=== PATIENT | male | born 1960 | race Caucasian/White ===

== ENCOUNTER 2023-08-03 11:56 | Inpatient (IN) | payer OTHER, SELFPAY ==
[2023-08-03] VITALS (8 sets, daily range): BP systolic 151–199; BP diastolic 89–112; BMI 32.4
--- NOTE | 2023-08-03 09:17 | ED.CVA ---
History of Present Illness
General
Chief Complaint: CVA/TIA Symptoms
Source: patient and other (Friend)
Exam Limitations: none
Time Seen by Provider: 08/03/23 09:07
Onset of Stroke Symptoms
Onset of symptoms known: No
Time pt last seen normal is known: No
Travel History
Have you had any contact with someone who has COVID-19?: No
Do you have any symptoms of coronavirus? Fever > 100 degrees, chills, cough, shortness of breath, sore throat, loss of taste or smell, muscle aches, or headache?: No
History of Present Illness
History of Present Illness:
62-year-old male presents with some slurred speech and disequilibrium like symptoms. Per his friend who brought him in and works with him, they have noticed over the last few weeks he has parking cars mildly erratically. Some difficulty following
commands. Patient states his complaint is his blood pressure.
Past History
Past History
ED Past Medical History: None
Review of Systems
Review of Systems
All Other Systems: Not applicable
Respiratory: Reports no symptoms
Cardiac: Reports no symptoms
Phy Exam
Physical Exam
Physical Exam:
GENERAL: Alert and oriented. Poor eye contact.
EYE: Orbits normal.
NECK: Supple, no significant adenopathy.
ENT: Pharynx without erythema
CARDIAC: Regular rate and rhythm without any obvious murmurs.
LUNGS: Clear breath sounds,normal
ABDOMEN: Soft, without focal tenderness or distention
NEUROLOGICAL: Alert and oriented , moderate slurred speech. No expressive aphasia. No clear-cut facial droop drift or lower extremity weakness however significant bilateral poor [id number] and [id number]. Light touch intact
SKIN: Warm and dry, no rash or lesion, no discoloration, skin intact.
MUSCULOSKELETAL: No edema,no deformity.Good color
PSYCH: Normal and appropriate interaction.
Scores
NIH Stroke Score
Level of Consciousness: 0 - Alert
LOC Questions: 0-Answers both correctly
LOC Commands: 0-Performs both correctly
Best Horizontal Gaze: 0-Normal
Visual [place]: 0=Normal, no visual loss
Facial Palsy: 0=Normal, symmetrical
Motor - Right Arm: 0=No drift 10 seconds
Motor - Left Arm: 0=No drift 10 seconds
Motor - Right Le-No drift 5 seconds
Motor - Left Le-No drift 5 seconds
Limb Ataxia: 2-Present in two limbs
Sensation: 0-Normal
Best Language: 0-No aphasia
Dysarthria: 2-Severe slurring
Extinction and Inattention: 0-No abnormality
Total Score:: 4
Course
Orders/Labs/Results
Orders:
Orders
08/03/23 09:07
ECG [Electrocardiogram (*1)] Urgent
Reason for Study: TIA/Stroke
08/03/23 09:08
EKG- Treatment ONCE
08/03/23 09:16
CT Head W/o Iv Contrast Urgent
Comment:
Reason For Exam: Slurred speech. Balance issues
Cardiac Monitoring- Treatment ONCE
IV Insert/Care/Rem.- Treatment PRN
Pulse Ox/cont/shift [RESP] Stat
Quantity: 1
08/03/23 09:30
Complete Blood Count/With Diff Urgent
Comprehensive Metabolic Panel Urgent
PTT Urgent
Prothrombin Time Urgent
08/03/23 10:45
Aspirin Chewable [Low Strength Aspirin] 324 mg PO NOW STA
08/03/23 11:33
Admit/Transfer Patient As Directed
Co-Sign Provider:
Level of Care: Inpatient admission
Assign to:: Telemetry
Physician / Group: russell
Diagnosis: Speech difficulty concerning for stroke
Reason for Telemetry: CVA/TIA
Date to Stop Telemetry: 08/06/23
Time to Stop Telemetry: 11:00
Reason for Hospitalization: see progress note
Expected length of stay greater than two midnights?: Yes
ELOS- Estimated Length of Stay in days: 3
I certify the patient meets the requirements for IP care: Yes
08/03/23 11:35
Code Status As Directed
Resuscitation Status: Full Code
08/06/23 11:00
DC Protocol for Telemetry ONCE
Abnormal Lab Results
08/03/23 08/03/23
09:20 09:30
Sodium 134 L mmol/L
(135-145)
BUN 23 H mg/dl
(9-20)
Glucose 313 H mg/dl
(70-99)
POC Glucose 323 H mg/dl
(70-99)
08/03/23 09:30
08/03/23 09:30
Vital Signs
Initial and Last Documented VS:
Initial Vital Signs
Temp Pulse Resp BP Pulse Ox
99.9 F 97 16 199/110 95
08/03/23 09:02 08/03/23 09:02 08/03/23 09:02 08/03/23 09:02 08/03/23 09:02
Last Documented Vital Signs
Temp Pulse Resp BP Pulse Ox
99.9 F 94 16 161/89 95
08/03/23 09:02 08/03/23 10:03 08/03/23 10:03 08/03/23 10:03 08/03/23 10:03
MDM/Problems Addressed
Differential Diagnosis Includes:
Dysarthria/disequilibrium peripheral. Workup in progress clearly warrants admission. CVA versus tumor versus possible significant electrolyte abnormality
*Radiology
Radiology exam reviewed: radiology read reviewed (Old stroke by CT)
*Pulse Oximetry
Patient hypoxic: no
*EKG
Interpreted by ED Provider?: Yes
Interpretation: abnormal
Comparison EKG: no comparison EKG present
Heart Rate: 107
Rate: tachycardiac
Rhythm: sinus
[place]: normal axis
Interval: normal interval
QRS Pattern: normal QRS
Ischemia: no ischemia
*Baggage Handler Interpretation
Rate: tachycardiac
Interpretation: abnormal
Heart Rate: 110
Rhythm: sinus
*Critical Care Note
Total Time (30-74mins, 75-104mins- exclusive of procedures): 15
ED Attending Note
-
Portions of this chart may have been created with voice recognition software.� Occasional wrong word or��sound alike� substitutions may have occurred due to the inherent limitations of voice recognition software.
Discharge Plan
Departure
Patient Disposition: Admit
Date of Disposition: 08/03/23
Time of Disposition: 10:20
Presentation/result/management discussed w/ accepting MD/DO: Neurology
Discharge Problem:
CVA, Hyperglycemia
Referrals:
NONE,* [Family Provider] -
Interventions
Interventions:
*Risk Screen - Suicide Last Done: 08/03/23 09:45
*General Assessment Last Done: 08/03/23 09:45
*Neglect/Abuse Screening Last Done: 08/03/23 09:45
ED- Fall Risk Assessment Last Done: 08/03/23 09:45
*ED COVID-19 Vaccine History Last Done: 08/03/23 09:02
ED- Pulmonary Assessment Last Done: 08/03/23 09:45
ED- Neurological Assessment Last Done: 08/03/23 09:45
ED- Cardiac Assessment Last Done: 08/03/23 09:45
ED Swallowing Screen Last Done: 08/03/23 09:52
Discharge Date and Time
Print Language: TELUGU
[2023-08-03 09:21] LABS: Glucose - Point of Care 323 mg/dl (70-99)
[2023-08-03 09:37] LABS: % Basophils 0.4 % (0-2); % Eosinophils 1.7 % (0-6); % Immature Granulocytes 0.1 % (0-0.5); % Lymphocytes 22.9 % (20.5-51.1); % Neutrophils 68.9 % (42.2-75.2); Absolute Eosinophils 0.1 10^3/uL (0-0.7); Absolute Lymphocytes 1.6 10^3/uL (1.2-3.4); Absolute Monocytes 0.4 10^3/uL (0.1-0.6); Absolute Neutrophils 4.9 10^3/uL (1.4-6.5); Hematocrit 47.1 % (39.0-52.0); Hemoglobin 17.1 g/dL (13.0-18.0); Mean Corp Hgb Conc. 36.3 g/dL (33.0-37.0); Mean Corpuscular Hgb 30.5 pg (27.0-31.0); Mean Corpuscular Volume 84.1 fL (80.0-94.0); Mean Platelet Volume 8.6 fL (7.4-10.4); Nucleated Red Blood Cells % 0 % (-); Platelet Count 237 10^3/uL (130-400); Red Cell Dist. Width 12.7 % (11.5-14.5); White Blood Cell Count 7.1 10^3/uL (4.8-10.8)
[2023-08-03 09:53] LABS: INR 1.02; PT 13.2 Sec (11.4-14.6)
[2023-08-03 10:02] LABS: ALT (SGPT) 28 U/L (0-50); AST (SGOT) 20 U/L (17-59); Albumin 4.6 g/dl (3.5-5.0); Alkaline Phosphatase 96 U/L (38-126); Blood Urea Nitrogen 23 mg/dl (9-20); Calcium 9.8 mg/dl (8.4-10.2); Carbon Dioxide 22 mmol/L (22-30); Chloride 103 mmol/L (98-107); Glucose 313 mg/dl (70-99); Potassium 5.1 mmol/L (3.5-5.1); Sodium 134 mmol/L (135-145); Total Bilirubin 0.8 mg/dl (0.2-1.3); Total Protein 6.9 g/dl (6.3-8.2); eGFR > 60.00
[2023-08-03] MEDS: LOW STRENGTH ASPIRIN 324 MG PO (11:19)
--- NOTE | 2023-08-03 11:43 | HPS.HSE ---
Family Physician
-
Family Physician: * NONE
Chief Complaint
-
Speech impairment
History of Present Illness
Patient works at [employer] and is coworker was concerned about his speech impairment and balance issues so got him to the hospital.
Patient is 62-year-old gentleman who has never seen a doctor. No given diagnosis. No prior surgeries.
Patient states he started to have speech difficulty since Saturday maybe, denies anything beyond that. Daughter is at bedside. She states that her dad was with her at home on Saturday and she did notice that.
He states he is not able to form full sentences. Nothing coming out right.
Daughter also felt he may be his usual self when he took a car out while living his daughter's place.
Patient denies any balance issues. He denies any limb weakness. Denies any sensory symptoms in the extremities. No headache. No visual symptoms.
According to family in the last 2 weeks he was noted to have taken wrong turns while driving and missing turns. He once drove himself to wrong place. He denies any memory issues.
His blood sugars were 322 in the ER. Not diagnosis of diabetes mellitus before.
His blood pressure was also elevated on presentation.
CT head shows no evidence of acute bleeding or stroke but has evidence of small prior infarcts on the right side.
Medical History
Past Medical History
Past Medical History: Reports None
Past Surgical History: Reports None
Social History
Tobacco: Other (Tobacco chewing since 1980)
Alcohol: Occasional
Drug: None
Employment: Employed
Family History
Family History: Not pertinent
Allergies / Home Medications
Allergies reflects when Allergies were last updated in [employer].
Home Medications with original date entered in [employer]
Allergy/Medication List:
Allergies
Allergy/AdvReac Type Severity Reaction Status Date / Time
No Known Allergies Allergy Unverified 08/03/23 09:05
Review of Systems
-
A 12 point ROS was completed and negative except as noted: Yes
Physical Exam
Vital Signs
Vital Signs
Temp Pulse Resp BP Pulse Ox
99.9 F 94 16 161/89 95
08/03/23 09:02 08/03/23 10:03 08/03/23 10:03 08/03/23 10:03 08/03/23 10:03
Physical Exam
General: No Apparent Distress
HEENT: Moist mucous membranes
Respiratory: Clear
Cardiac: S1/S2 and Regular Rhythm; No Murmur
GI: Soft, Non Tender, Non Distended and No Hepatosplenomegaly
Neuro: AO x 3, No Motor Deficits and Slurred Speech; No Facial Droop or Tremors
Psych: Calm
Laboratory Results
-
08/03/23 09:30
08/03/23 09:30
Laboratory Results
PT 13.2 Sec (11.4-14.6) 08/03/23 09:30
INR 1.02 08/03/23 09:30
APTT 27.0 Sec (23.4-35.0) 08/03/23 09:30
Total Bilirubin 0.8 mg/dl (0.2-1.3) 08/03/23 09:30
AST 20 U/L (17-59) 08/03/23 09:30
ALT 28 U/L (0-50) 08/03/23 09:30
Alkaline Phosphatase 96 U/L (38-126) 08/03/23 09:30
Data Reviewed
-
CT Scan: Report Reviewed by me (ct head)
Lab Data: Labs Reviewed by me
Impression/Plan
-
Speech impairment for more than 24 hours. No obvious motor deficit currently. He does have balance issues noted by other people which he denies. He also had in the last 2 weeks issues with his cognition may be-was missing turns while driving.
Clinical suspicion is for CVA. CT head shows nothing acute but has old ischemic infarct in the right lentiform nucleus lacunar infarct and old right occipital lobe infarct. He has risk factors of tobacco chewing, new diagnosis of diabetes mellitus
and elevated blood pressure.
Admit to telemetry.
Start on aspirin and statins. Check a lipid profile.
Check an MRI of the brain and MRI of the head and neck.
Consult neurology.
ECHO.
New diabetes mellitus type 2-patient discussed to continue without major metabolic disturbance. Started on sliding scale insulin for now check hemoglobin A1c.Would consult diabetic nurse educator if he is here on Saturday.
Elevated BP -probably a hypertensive pt. will allow 24 to hours of permissive hypertension and start on scheduled medication as needed.
Tobacco use-advised to stop chewing tobacco as it is a significant risk factor for stroke and also cardiovascular disease.
Full code
[2023-08-03] MEDS: APRESOLINE 5 MG IV (15:15)
--- NOTE | 2023-08-03 15:27 | PTCARENOTE ---
Patient admitted from ER into room 403-01. BP elevated - Hydralazine given 5 mg IV as per parameters. Reviewed plan of care with patient and daughter and further testing ordered. Patient verbalizes understanding of teaching. Oriented to room, and
use of call wolf. Instructed to call if he has the need to get OOB due to having the pneumatic compression stockings on. Patient verbalizes understanding. Only neuro deficit is slightly slurred speech. Patient not aphasic. Patient takes no
medications at home. Passed swallowing screen so placed on diet ordered. Patient with good appetite. Resting comfortably in bed at this time and denies complaints.
[2023-08-03 17:12] LABS: Glucose - Point of Care 217 mg/dl (70-99)
[2023-08-03] MEDS: LIPITOR 40 MG PO (17:14)
[2023-08-03] MEDS: NOVOLOG FLEXPEN-LOW RESISTANCE 2 UNITS SC (17:16)
[2023-08-03 21:17] LABS: Glucose - Point of Care 223 mg/dl (70-99)
[2023-08-03] MEDS: NOVOLOG FLEXPEN 3 UNITS SC (22:33)
[2023-08-04] VITALS (8 sets, daily range): BP systolic 122–166; BP diastolic 73–106; PULSE 90
[2023-08-04 00:22] LABS: Glucose - Point of Care 161 mg/dl (70-99)
[2023-08-04 06:41] LABS: HDL Cholesterol 39 mg/dl; LDL Cholesterol, Calculated 210 mg/dl; Total Cholesterol 300 mg/dl (50-199); Triglyceride 258 mg/dl (10-149); Very Low Density Lipoprotein 51 mg/dl (0-30)
[2023-08-04 06:54] LABS: Glucose - Point of Care 239 mg/dl (70-99)
[2023-08-04] MEDS: NOVOLOG FLEXPEN-LOW RESISTANCE 2 UNITS SC ×3 (08:39→16:49)
[2023-08-04] MEDS: LOW STRENGTH ASPIRIN 81 MG PO (08:39)
[2023-08-04 08:59] LABS: Glycohemoglobin (HgbA1c) 9.8 % (4.0-5.6)
--- NOTE | 2023-08-04 09:30 | CON.NEURO4 ---
Consultation - Neurology 4
-
CONSULTING PHYSICIAN: mEa
REFERRING PHYSICIAN: ER
DICTATED BY: Ema
DATE/TIME OF REQUEST: 08/03/23
DATE/TIME OF CONSULTATION: 08/04/23
Reason for Consultation: stroke
History of Present Illness:
62 year-old male who had never seen a doctor before who noted speech difficulty starting on at least Saturday (two days ago). His daughter states that he was with her on Saturday and she did notice that. He works in [employer] and a coworker was
concerned about his speech abnormalities and some balance issues and got him to the hospital. Coworkers have also reported that he's been parking cars erractically for the past few weeks. Family has noted that in the last two weeks he was noted to
take wrong turns and miss turns while driving. No other clear focal neurological deficits. BG was 322 in the ED.
Past Medical History: Reports None
Past Surgical History: Reports None
Social History
Tobacco: chewing tobacco since 1980
Alcohol: Occasional
Drug: None
Employment: Employed
Family History: Not pertinent
Allergies
No Known Allergies Allergy (Unverified 08/03/23 09:05)
Home Medications
�Medication �Instructions �Recorded
hhyhigijkhxs-txhbdndx-osykhc 1 tab PO DAILY Supplement 08/03/23
tablet (Multivitamin 50 Plus
tablet)
Review of Symptoms:
Patient denies any fever, headache, chest pain, shortness of breath, GI or symptoms.
�Per the HPI.�All systems are reviewed negative except above.
Vital Signs
Temp Pulse Resp BP Pulse Ox
98.7 F 80 18 144/96 95
08/04/23 07:55 08/04/23 07:55 08/04/23 07:55 08/04/23 07:55 08/04/23 07:55
Lab Results
08/03/23 09:30
08/03/23 09:30
PT 13.2 Sec (11.4-14.6) 08/03/23 09:30
INR 1.02 08/03/23 09:30
APTT 27.0 Sec (23.4-35.0) 08/03/23 09:30
Sodium 134 mmol/L (135-145) L 08/03/23 09:30
Potassium 5.1 mmol/L (3.5-5.1) 08/03/23 09:30
BUN 23 mg/dl (9-20) H 08/03/23 09:30
Glucose 313 mg/dl (70-99) H 08/03/23 09:30
Calcium 9.8 mg/dl (8.4-10.2) 08/03/23 09:30
LDL Cholesterol, Calc 210 mg/dl 08/04/23 05:49
Physical Exam:
The patient is afebrile, heart sounds S1 and S2 are regular, and chest is clear to auscultation bilaterally.
NIH Stroke Scale:
I performed the NIH stroke scale on the patient on 08/04/23. The patient scored 0 points on the NIH stroke scale assessment.
Neurologic Examination:
The patient is awake, alert and oriented x 3. He is able to follow commands and answer questions appropriately. There is no aphasia or dysarthria. On cranial nerve assessment, pupils are 3 mm bilateral, round and reactive to light and
accommodation. Visual lowe are full. Extraocular movements are intact. Facial sensations are intact and bilaterally symmetrical, there is no facial asymmetry. Hearing is intact bilaterally to normal conversation volume. Tongue palate and uvula
are midline. Sternocleidomastoid strengths are full bilaterally. Motor strengths are 5/5 bilateral upper and lower extremities on medical research [place] scale. There is no drift or involuntary movement noted. Deep tendon reflexes are 2+ bilateral
upper and lower extremities and Babinski is absent bilaterally. Sensations of pain, touch, temperature and vibration are intact and bilaterally symmetrical. There was no extinction noted on double simultaneous stimulation. Coordination is intact by
finger to nose bilaterally.
Neuro Imaging:
HCT:
No acute intracranial abnormality noted.
Old right lentiform nucleus lacunar infarct.
Old right occipital lobe infarct.
Impression:
NA BRUCE is a 62 year old M who has presented to the hospital with aphasia and possible balance issues for more than 24 hours superimposed on cognitive impairment/difficulty with driving for at least 2 weeks. He is found to be diabetic with
elevated blood pressure and had never seen a doctor before.
Patient has the following risk factors for their symptoms: age, untreated vascular risk factors, use of chewing tobacco
IV Tenecteplase/IAT candidacy: out of the window
Recommendations:
-check MRI brain without contrast to evaluate for stroke
-MRA head/neck
-BP goal is normotension.
-started DAPT x 21 days, then ASA 81mg daily after.
-Hemoglobin A1C is 9.8. Goal is normoglycemia.
-Started atorvastatin 80 mgby mouth daily at bedtime. LDL is 210. Goal LDL after stroke is <70.
- Check an echocardiogram.
-PT/OT/ST evaluations
- DVT prophylaxis
-continue neurochecks
Discussed patient care with: patient, ER, hospitalist
--- NOTE | 2023-08-04 09:41 | PTOTSP ---
SPEECH THERAPY SWALLOW EVALUATION:
Patient exhibits grossly functional oropharyngeal swallow at this time. Patient remains at risk for aspiration/related complications given suspected acute CVA. Recommend continue Regular texture diet, thin liquids. Medications whole with liquid, one
at a time. General aspiration precautions. Speech therapy to follow briefly, assess diet tolerance and modify as appropriate, and complete full speech/language/cognitive communication evaluation given suspected CVA and suspected cognitive
communication impairments characterized by impaired insight/judgement from informal assessment.
RECOMMEND:
1) continue Regular texture diet, thin liquids
2) Medications whole with liquid, one at a time
3) General aspiration precautions: Upright positioning; small single sips/bites; slow rate of intake
4) Speech therapy to follow
[2023-08-04] MEDS: PLAVIX 75 MG PO (11:16)
[2023-08-04 11:50] LABS: Glucose - Point of Care 238 mg/dl (70-99)
--- NOTE | 2023-08-04 12:33 | W.PN.HOSP.TC ---
Today's Communication/Plan
-
Continue with aspirin and statin.
Start on Lantus and metformin.
Start on lisinopril.
Assessment / Plan
Assessment / Plan
Speech impairment for more than 24 hours. No obvious motor deficit currently. He does have balance issues noted by other people which he denies. He also had in the last 2 weeks issues with his cognition may be-was missing turns while driving.
Clinical suspicion is for CVA. CT head shows nothing acute but has old ischemic infarct in the right lentiform nucleus lacunar infarct and old right occipital lobe infarct. He has risk factors of tobacco chewing, new diagnosis of diabetes mellitus
and elevated blood pressure.
Admited to telemetry - no events on monitor.
Started on aspirin and statins.
Await MRI of the brain and MRI of the head and neck report
Appt neurology input.
Goal is normotension
ECHO.
New diabetes mellitus type 2-patient discussed to continue without major metabolic disturbance. Started on sliding scale insulin ; hemoglobin A1c is 9.8 .Start on HS lantus and Metfromin.Consult Diabetic nurse educator in am.
New diagnosis of HTN -Elevated BP on adx -probably a hypertensive pt. goal is normotension. Start on lisinopril.
Tobacco use-advised to stop chewing tobacco as it is a significant risk factor for stroke and also cardiovascular disease.
Full code
Total time spent on today's encounter was 52 minutes which included time spent in counseling the patient/family regarding diagnosis and treatment plan as listed above, goals of care, and symptom management. Case was discussed with nursing staff,
specialists, . All labs and imaging personally reviewed by me. Remainder the time spent in detailed review of previous records, lab data, imaging, and other medical provider documentation.
Anticipated Discharge: 24 - 48 hours
Subjective/Interval History
-
Date of Service: August 04, 2023
Patient feels speech is improved. Has not much walked to know his balance. Denies any limb weakness. No headache.
Objective Data
-
Vital Signs:
Vital Signs
Temp Pulse Resp BP Pulse Ox
98.0 F 92 20 158/106 96
08/04/23 11:44 08/04/23 11:44 08/04/23 11:44 08/04/23 11:44 08/04/23 11:44
I&O
08/03/23 08/04/23 08/05/23
06:59 06:59 06:59
Intake Total 600 / 600
Balance 600 / 600
Review of Systems
-
Respiratory: Denies Trouble Breathing
Cardiac: Denies Chest Pain or Palpitations
Neuro: Denies Dizzy or Headache
Physical Exam
-
General: No Apparent Distress
HEENT: Moist Mucous Membranes
Respiratory: Clear to Auscultation
Cardiac: Regular Rhythm and S1/S2
GI: Soft
Neuro: AO x 3; Negative No Motor Deficits, Tremors, Slurred Speech or Facial Droop
Psych: Calm
Data Reviewed
-
Labs: Labs Reviewed by me
--- NOTE | 2023-08-04 13:04 | CM ---
CM met with pt bedside
Pt resides alone in a 1st floor apartment with 0STE
He notes independence without any ADs
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
Pt does not have healthcare insurance
He has no PCP
Pt with new DM diagnosis
Educator to be consulted
Concern noted with associated costs and follow care
Referred to [facility]
Free clinic info placed in dc folder
As he might be out of area for [place], also provided [facility] clinic info
Aware [facility] may have more affordable costs for DM supplies and medications than local [facility]
Will await educator recommendations
Discharge Disposition- home, no needs anticipated
[2023-08-04] MEDS: ZESTRIL 5 MG PO (13:09)
[2023-08-04 16:47] LABS: Glucose - Point of Care 219 mg/dl (70-99)
[2023-08-04] MEDS: GLUCOPHAGE 500 MG PO (16:50)
[2023-08-04] MEDS: LIPITOR 80 MG PO (16:51)
--- NOTE | 2023-08-04 18:08 | PTCARENOTE ---
Patient given patient education hand outs on the following medications - Glucophage, Plavix, Zestril, and Lipitor.
[2023-08-04 21:28] LABS: Glucose - Point of Care 174 mg/dl (70-99)
[2023-08-04] MEDS: LANTUS 0.149999999999999994 UNITS SC (21:44)
[2023-08-05 03:52] VITALS: BP 127/84
[2023-08-05 07:45] LABS: Glucose - Point of Care 234 mg/dl (70-99)
[2023-08-05 07:55] VITALS: BP 131/86
[2023-08-05] MEDS: GLUCOPHAGE 500 MG PO ×2 (08:21→17:04)
[2023-08-05] MEDS: ZESTRIL 5 MG PO (08:22)
[2023-08-05] MEDS: PLAVIX 75 MG PO (08:22)
[2023-08-05] MEDS: LOW STRENGTH ASPIRIN 81 MG PO (08:22)
[2023-08-05] MEDS: NOVOLOG FLEXPEN-LOW RESISTANCE 2 UNITS SC (08:28)
--- NOTE | 2023-08-05 08:30 | W.PN.NEURO.1 ---
Addendum entered and electronically signed by Solomon Fam MD 08/05/23 16:55:
I saw and evaluate the patient I reviewed the note by Alei Davila agree the findings the following comments:
62-year-old man with past medical history of diabetes hypertension tobacco use with chewing presenting the hospital with slurred speech right arm weakness and balance issues. He has been found to have a left-sided ischemic pontine stroke along with
some chronic infarcts on the brain MRI.
Patient feeling pretty well he does note his speech is bit difficult but walking feels pretty much baseline and improved, notes some right arm weakness, no significant headache.
Neurologic examination notable for some moderate dysarthria right arm weakness and drift with some mild amount of right arm dysmetria. Gait examinationindependent good-looking gait no significant asymemtry or ataxia.
Brain MRI with an acute ischemic stroke in the left brett multiple chronic infarcts mostly in the subcortical areas
MRA shows multifocal intracranial stenosis seen in both the vertebral arteries intracranially as well as mild amount of the basilar artery, right-sided carotid bulb stenosis 70% and mild stenosis 30% of the left carotid bulb
Assessment: Ischemic stroke of the brett either due to small vessel disease versus symptomatic intracranial stenosis
No concern for symptomatic carotid given the pontine stroke is in the posterior circulation. Chronic infarcts noted in the subcortical areas are most likely due to small vessel disease, they are not in the cortical areas and not thought to be
embolic in source.
Risk factors include obesity hypertension diabetes and tobacco use.
Recommendations
-Would pursue DAPT therapy with aspirin and clopidogrel for 3 months given the intracranial stenosis seen on vessel imaging, after 3 months stop clopidogrel
-Atorvastatin 80 mg daily
-Treating diabetes diabetic education diet
-Encouraged tobacco chewing to stop
-Physical therapy occupational therapy PMR driving
-Discussed with patient that I do recommend he stop driving for the time being and he endorsed understanding, given that he will probably show decent improvement in the next couple months I am not going to recommend reporting to the DMV
-Vascular surgery follow up and following of carotid disease outpatient
Will sign off call with questions and concerns
Original Note:
Documented by User: Alie Santoyo NP 08/05/23 12:20
Today's Communication / Plan
-
.
Neuro Assessment/Plan
Assessment
62-year-old right-handed male presented to on 08/03/23 with report of slurred speech and balance issues starting three days ago on 08/02/23. 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
the past several weeks. CT head on arrival demonstrated an old right lentiform nucleus and right occipital ischemic infarct, no acute findings. He was outside of the time window for TNK/IAT. Blood sugar was 322 in the ER. Patient has not evaluated
by a physician in years.
MRI Brain 08/04/23: Acute to subacute nonhemorrhagic infarct in the brett to the left midline measuring 1.2 cm. Multiple chronic infarcts. Chronic senescent changes, as above.
MRA Head 08/04/23: No MRA evidence for vascular occlusion. Multifocal intracranial stenoses, most significant at the cavernous segment of the right internal carotid artery considered moderate to high-grade. Mild to moderate stenoses elsewhere in the
telida of [place] within the limitations of motion artifact, as detailed above.
MRA Neck 08/04/23: Bilateral carotid bifurcation atherosclerosis causing 70% stenosis of the right carotid bulb and 30% stenosis of the left carotid bulb.
I. Acute/subacute left pontine ischemic stroke; etiology likely small vessel disease.
II. Old left thalamic and right lentiform nucleus ischemic strokes.
III. Moderate-severe multifocal intracranial stenosis.
IV. R ICA 70% stenosis on MRA neck imaging, currently asymptomatic.
V. New diagnosis NIDDM.
Plan
-Continue DAPT with aspirin 81mg and Plavix 75mg daily for 3 months due to intracranial stenosis.
-Goal normotension.
-TTE pending.
-LDL goal <70. LDL is 210. Continue newly initiated atorvastatin 80mg daily.
-Goal normoglycemia, hbA1c is 9.8. community health educator consult for new diagnosis NIDDM.
-NIHSS and neurological checks per unit guidelines.
-Provide patient with a stroke education packet.
-DVT prophylaxis.
-PT/OT/ST evaluations.
-Smoking cessation counseling for tobacco chewing.
-No driving. Will need eventual OT driving evaluation as an outpatient to return to driving.
-Vascular surgery evaluation for R ICA stenosis.
-Follow-up with Neurology as an outpatient about 4 weeks, may see the ZONING TECHNICIAN or one of the physicians.
Subjective/Objective
Subjective Data
Date of Service: August 05, 2023
No acute events overnight. Patient reports feeling improved overall. He denies any headache, dizziness, swallowing difficulty, numbness, weakness, chest pain, palpitations, and shortness of breath.
Objective Data
Vital Signs
Temp Pulse Resp BP Pulse Ox
97.9 F 77 18 131/86 93
08/05/23 07:55 08/05/23 07:55 08/05/23 07:55 08/05/23 07:55 08/05/23 07:55
Lab Results
08/03/23 09:30
08/03/23 09:30
PT 13.2 Sec (11.4-14.6) 08/03/23 09:30
INR 1.02 08/03/23 09:30
APTT 27.0 Sec (23.4-35.0) 08/03/23 09:30
Sodium 134 mmol/L (135-145) L 08/03/23 09:30
Potassium 5.1 mmol/L (3.5-5.1) 08/03/23 09:30
BUN 23 mg/dl (9-20) H 08/03/23 09:30
Glucose 313 mg/dl (70-99) H 08/03/23 09:30
Calcium 9.8 mg/dl (8.4-10.2) 08/03/23 09:30
LDL Cholesterol, Calc 210 mg/dl 08/04/23 05:49
Patient Allergies
No Known Allergies Allergy (Unverified 08/03/23 09:05)
LDL Level: >70, statin ordered
Review of Systems
-
History Source: Patient
EENT: Negative Blurry Vision, Decreased Vision or Swallowing Difficulty
Respiratory: Negative Cough or Trouble Breathing
Cardiac: Negative Chest Pain or Palpitations
Abdomen/GI: Negative Nausea
Neuro: Ataxia and Speech Problem; Negative Dizzy, Headache, Weakness, Numbness or Tremors
Physical Exam
-
General: Well Developed, Well Nourished and No Apparent Distress
Eyes: No Ptosis and PERRLA
HEENT: Normocephalic and Atraumatic
Neck: Full Range of Motion
Respiratory: No Dyspnea
GI: Non-distended
Extremities: No Clubbing, No Cyanosis and No Edema
Psych: Unremarkable
Extended Neurological Exam
Mood & Affect: Mood Unremarkable and Affect Unremarkable
Attention Span & Concentration: Awake, Alert and Interactive
Memory: Unremarkable (AAOx3) and Able to Recall
Tremor: Hand Tremor Absent and Head Tremor Absent
Involuntary Movement: None
Speech: Quantity Unremarkable, Rate of Production Unremarkable and Dysarthric
Cranial Nerve II: Left Eye: Pupillary Reactivity Unremarkable, Pupillary Size Unremarkable and Visual Chacko Intact
Cranial Nerve II: Right Eye: Pupillary Reactivity Unremarkable, Pupillary Size Unremarkable and Visual Chacko Intact
Cranial Nerves III, IV, : Extraocular Movement: Extraocular Movement Full in all Directions
Cranial Nerve V: Facial Sensation: Intact to Light Touch
Cranial Nerve VII: Facial Symmetry: Normal Facial Symmetry
Cranial Nerve VIII: Hearing: Unremarkable Hearing to Normal Conversational Volume
Cranial Nerves IX, X: Palate Movement: Palate Elevation Symmetric
Cranial Nerve XI: Shoulder Shrug: Unremarkable
Cranial Nerve XII: Tongue Protusion: Midline
Muscle Strength, Overall: Full Throughout
Muscle Bulk & Tone: Bulk Unremarkable and Tone Unremarkable
Pronator Drift: No Drift in Upper Extremities and No Drift in Lower Extremities
Touch Sensation: Double Simultaneous Stimulation Unremarkable
Coordination: Negative Pjsitg-mgke-pytixk Testing Unremarkable (RUE slightly ataxic) or Mmjf-Jacs-Vlru movements intact bilaterally (RLE slightly ataxia)
Babinski Sign: Absent Bilaterally
Gait & Station: Up from Seated Without Problem
Modified Middleton Score (MRS)
-
Modified Kenny Scale (mRS): Moderate disability. Requires some help, able to walk unassisted.
Score: 3
Data Reviewed
-
MRI Head: Report Reviewed and Image Reviewed
MRA Head: Report Reviewed and Image Reviewed
MRA Neck: Report Reviewed and Image Reviewed
Echocardiogram: Pending
Labs: Report Reviewed
Lipid Profile: Report Reviewed
HgbA1C: Report Reviewed
Reviewed with: Physician and Patient
Medications
-
Active Medications
Generic Name Dose Route Start Last Admin
Trade Name Freq PRN Reason Stop Dose Admin
Acetaminophen 650 mg 08/03/23 13:42
Acetaminophen 650 Mg Rectal Suppository RECTAL 08/31/23 13:41
Q4HPRN PRN
GRIMM, mild pain, or temp >100.4F
Acetaminophen 650 mg 08/03/23 13:42
Acetaminophen 325 Mg Tablet PO 08/31/23 13:41
Q4HPRN PRN
GRIMM, mild pain, or temp >100.4F
Aspirin 81 mg 08/04/23 08:00 08/05/23 08:22
Aspirin 81 Mg Chewable Tablet PO 09/01/23 07:59 81 mg
DAILY RORY Administration
Atorvastatin Calcium 80 mg 08/04/23 18:00 08/04/23 16:51
Atorvastatin (Lipitor) 80 Mg Tablet PO 09/01/23 17:59 80 mg
QPM RORY Administration
Clopidogrel Bisulfate 75 mg 08/04/23 10:00 08/05/23 08:22
Clopidogrel 75 Mg Tablet PO 09/01/23 09:59 75 mg
DAILY RORY Administration
Dextrose 12.5 grams 08/03/23 13:42
Dextrose 50% (0.5 Grams/Ml) 50 Ml Syringe IV 08/31/23 13:41
[id number] PRN
hypoglycemia
Protocol
Glucagon 1 mg 08/03/23 13:42
Glucagon 1 Mg Vial IM 08/31/23 13:41
PRN PRN
hypoglycemia
Protocol
Hydralazine HCl 5 mg 08/03/23 13:42 08/03/23 15:15
Hydralazine 20 Mg/Ml Vial IV 08/31/23 13:41 5 mg
Q4HPRN PRN Administration
SBP>210 or DBP>110
Insulin Glargine 15 units/ 0.15 mls @ 0 mls/hr 08/04/23 22:00 08/04/23 21:44
Device SC 09/01/23 21:59 0.15 mls
HS RORY Administration
As Directed
Insulin Aspart 0 units 08/03/23 16:30 08/05/23 08:28
Insulin Aspart Low Resistance 300 Units/3 Ml Pen.Injctr SC 08/31/23 16:29 2 units
AC RORY Administration
Protocol
Lisinopril 5 mg 08/04/23 13:00 08/05/23 08:22
Lisinopril 5 Mg Tablet PO 09/01/23 12:59 5 mg
DAILY RORY Administration
Magnesium Hydroxide 30 ml 08/03/23 13:42
Milk Of Magnesia 30 Ml Cup PO 08/31/23 13:41
HSPRN PRN
constipation
Metformin HCl 500 mg 08/04/23 17:00 08/05/23 08:21
Metformin 500 Mg Regular Release Tablet PO 09/01/23 16:59 500 mg
BID@0800,1700 RORY Administration
Sodium Chloride 0 flush 08/03/23 14:00
Sodium Chloride 0.9% (Flush) Syringe IV 08/31/23 13:59
PER PROTOCOL RORY
Home Medications
�Medication �Instructions �Recorded
mnsyiphefuro-roclnemv-vgzusn 1 tab PO DAILY Supplement 08/03/23
tablet (Multivitamin 50 Plus
tablet)
NIH Stroke Score
Subsequent NIH Scale
Date of Subsequent NIH Scale: 08/05/23
Time of Subsequent NIH Scale: 08:30
NIH Stroke Score
Level of Consciousness: 0 - Alert
LOC Questions: 0-Answers both correctly
LOC Commands: 0-Performs both correctly
Best Horizontal Gaze: 0-Normal
Visual Chacko: 0=Normal, no visual loss
Facial Palsy: 0=Normal, symmetrical
Motor - Right Arm: 0=No drift 10 seconds
Motor - Left Arm: 0=No drift 10 seconds
Motor - Right Le-No drift 5 seconds
Motor - Left Le-No drift 5 seconds
Limb Ataxia: 2-Present in two limbs
Sensation: 0-Normal
Best Language: 0-No aphasia
Dysarthria: 1-Mild slurring
Extinction and Inattention: 0-No abnormality
Total Score:: 3
Modified Kenny (mRS) Score
Modified Middleton Scale (mRS): Moderate disability. Requires some help, able to walk unassisted.
Score: 3

Documented by User: Solomon Fam MD 08/05/23 16:51
Modified Kenny Score (MRS)
-
Score: 3
NIH Stroke Score
NIH Stroke Score
Total Score:: 3
Modified Kenny (mRS) Score
Score: 3
--- NOTE | 2023-08-05 10:14 | CON.VAS ---
Addendum entered and electronically signed by Brock Ríos III, MD 08/05/23 13:31:
This patient was seen and examined with CARLA Torres. I agree with the history and physical exam as well as the assessment and plan. I have the following additions:
Chart reviewed
MRI of the brain reveals bilateral chronic infarcts with an acute/subacute infarct in the brett.
MRA reveals significant carotid stenosis on the right with a nonsignificant stenosis on the left
Currently comfortable with no complaints
Obtain CT angiogram of the head and neck
Obtain baseline carotid duplex
Antiplatelet therapy and statin
Will follow-up once imaging is completed and finalize the plan. Likely to be outpatient follow-up with me.
Signed:
Brock Ríos III, MD
[facility]
[phone] (guzn)
Original Note:
Consultation
Consultation Request
Performing Provider: [place]
Reason for Consultation: Carotid artery stenosis
Medical History
-
Chief Complaint: Speech difficulties, balance issue
History of Present Illness:
62-year-old male with no past medical history (has never seen a physician) admitted through the ER on 08/03/2023 for a CVA workup. 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
off. They called EMS and brought him here. He was also noted that the patient had been driving cars ' erratically' for the past few weeks. Family noted patient had taken wrong turns or missed a turn altogether while driving in the last [address]: negative
Brain MRI: Acute to subacute nonhemorrhagic infarct in the brett to the left midline measuring 1.2 cm. Multiple chronic infarcts. Chronic infarct in the right occipital lobe. Smaller chronic infarct of the right lentiform nucleus at the level of the
globus pallidus. Chronic lacunar infarct of the left thalamus.
Neck MRA: Bilateral carotid bifurcation atherosclerosis causing 70% stenosis of the right carotid bulb and 30% stenosis of the left carotid bulb.
Vascular consult for carotid stenosis found by MRA. Patient seen at bedside this a.m. with Dr. Ríos. Patient continues to have difficulties with speech.
Past Medical History
Past Medical History: None
Past Surgical History: None
Social History
Tobacco: Other (Chewing tobacco)
Alcohol: Occasional
Drug: None
Employment: Employed
Family History
Family History: Reviewed & Not Pertinent
Allergies / Home Medications
Allergy/AdvReac Type Severity Reaction Status Date / Time
No Known Allergies Allergy Unverified 08/03/23 09:05
�Medication �Instructions �Recorded �Confirmed �Type
hbhautsnyfwr-lhfzwrxn-gysntw 1 tab PO DAILY Supplement 08/03/23 08/03/23 History
tablet (Multivitamin 50 Plus
tablet)
Review of Systems
-
Unable to obtain full review of systems at this time due to: Other (Speech difficulties)
History Source: Patient
All other systems: Negative unless noted
Constitutional: Reports No Symptoms
Respiratory: Reports No Symptoms
Neurological: Reports Other (Speech difficulties)
Endocrine: Reports No Symptoms
Physical Exam
Vital Signs
Temp Pulse Resp BP Pulse Ox
97.9 F 77 18 131/86 93
08/05/23 07:55 08/05/23 08:22 08/05/23 07:55 08/05/23 08:22 08/05/23 07:55
Lab Results
08/03/23 09:30
08/03/23 09:30
Physical Exam
General: No Apparent Distress
HEENT: Normocephalic and Atraumatic
Respiratory: Non Labored Respirations
Cardiac: Negative JVD
GI: Soft, Non Tender and Non Distended
Musculoskeletal: No Clubbing, No Cyanosis and No Edema
Skin: Warm
Neuro: Awake, Alert, No Motor Deficits and Other (Word finding )
Psych: Calm
Assessment / Plan
-
62-year-old male here with speech/balance issues, acute/subacute brett infarct, multiple chronic infarcts bilaterally
Carotid stenosis right greater than left (70/30)
Location of acute/subacute infarct does not involve carotids
Plan:
-Carotid ultrasound for baseline
-CTA head and neck
-Agree with aspirin/Plavix/statin
-Will follow-up with patient after scans
--- NOTE | 2023-08-05 11:48 | W.PN.HOSP.TC ---
Today's Communication/Plan
-
continue with DAPT, statins, lisinopril.
Consult diabetic nurse practitioner. CW Lantus and metformin. If insulin tx are a issue to pt with add GLP1 agonist
Vascular surgery consult
Assessment / Plan
Assessment / Plan
Speech impairment for more than 24 hours. No obvious motor deficit currently. He does have balance issues noted by other people which he denies. He also had in the last 2 weeks issues with his cognition may be-was missing turns while driving.
Clinical suspicion is for CVA. CT head shows nothing acute but has old ischemic infarct in the right lentiform nucleus lacunar infarct and old right occipital lobe infarct. He has risk factors of tobacco chewing, new diagnosis of diabetes mellitus
and elevated blood pressure.
Admited to telemetry - no afib on monitor.
Started on aspirin and statins.
MRI of the brain and MRI of the head and neck report noted - Confirms an acute to subacute nonhemorrhagic infarct in the brett to the left side of midline. Multiple chronic infarcts noted including the right lentiform nucleus. He also show CTA
70% luminal diameter reduction of the right carotid bulb. Will ask vascular input on the right ICA pathology
Appt neurology input.
Goal is normotension -Improved with the initiation of treatments
ECHO Pending
New diabetes mellitus type 2-patient discussed to continue without major metabolic disturbance. Started on sliding scale insulin ; hemoglobin A1c is 9.8 .Start on HS lantus and Metfromin.Consult Diabetic nurse educator.
New diagnosis of HTN -Elevated BP on adx -probably a hypertensive pt. goal is normotension. Continue on lisinopril.
Tobacco use-advised to stop chewing tobacco as it is a significant risk factor for stroke and also cardiovascular disease.
Full code
Discussed with neurology today
Total time spent on today's encounter was 52 minutes which included time spent in counseling the patient/family regarding diagnosis and treatment plan as listed above, goals of care, and symptom management. Case was discussed with nursing staff,
specialists, . All labs and imaging personally reviewed by me. Remainder the time spent in detailed review of previous records, lab data, imaging, and other medical provider documentation.
Anticipated Discharge: 24 - 48 hours
Subjective/Interval History
-
Date of Service: August 05, 2023
Says his speech is no worse and may be better.
voices no new specific complaints.
Objective Data
-
Vital Signs:
Vital Signs
Temp Pulse Resp BP Pulse Ox
97.9 F 77 18 131/86 93
08/05/23 07:55 08/05/23 08:22 08/05/23 07:55 08/05/23 08:22 08/05/23 07:55
I&O
08/04/23 08/05/23 08/06/23
06:59 06:59 06:59
Intake Total 600 / 600 780 / 780
Balance 600 / 600 780 / 780
Review of Systems
-
Constitutional: Denies Fever
Respiratory: Denies Trouble Breathing
Cardiac: Denies Chest Pain or Palpitations
Abdomen/GI: Denies Nausea or Vomiting
Neuro: Denies Headache, Weakness, Numbness or Tremors
Physical Exam
-
General: No Apparent Distress
HEENT: Moist Mucous Membranes
Respiratory: Clear to Auscultation
Cardiac: Regular Rhythm (SR on monitor) and S1/S2
Neuro: AO x 3 and No Motor Deficits
Psych: Calm
Data Reviewed
-
MRI: Report Reviewed by me (MRI brain)
Labs: Labs Reviewed by me
--- NOTE | 2023-08-05 12:11 | PN.DE.MGMTRT ---
Insulin Management
- -
08/05/2023: Diabetes Management Consult
62 year old Male who presented to the hospital with aphasia and possible balance issues for more than 24 hours superimposed on cognitive impairment/difficulty with driving for at least 2 weeks. Brain MRI/MRA showed Acute to subacute nonhemorrhagic
infarct and Multiple chronic infarcts.
Pt awake, alert, oriented, offers no complaint, sitting up eating lunch, able to discuss diabetes mgt. State he has never seen a doctor before.
Glucose on admission was 323, A1C 9.8%, Newly dx Type 2 diabetes. Cr 0.9, eGFR>60.
Pt was started on Lantus @HS, Metformin 500mg BID and sliding scale insulin.
He received his 1st dose of Lantus 15 units last night, fasting glucose was 234 this AM. His premeal glucose range has been 219 to 239.
Discussed diabetes management with insulin, Pt states he has no insurance and that insulin 4 times a day is cost prohibitive for him at this time.
States he has an MA application pending. He is willing to continue taking Lantus at HS with oral meds.
Will add Glipizide 5mg BID, 1 st dose now. Increase Lantus dose to 18 units @ HS. Cont Metformin 5000mg BID.
Pt will not be able to afford GLP1 at this time until he establishes prescription coverage.
Monitor instructions were provided, he will need f/u in am to reinforce monitor use at home
Diabetes History
- -
Type of Diabetes: 2 requiring insulin
Pre-Admission Diabetes Regimen
Lab Results
Hemoglobin A1c 9.8 % (4.0-5.6) H 08/04/23 05:49
Insulin Pump Settings
IP Diabetes Regimen
08/04/23 08/04/23 08/05/23
16:45 21:26 07:43
POC Glucose 219 H 174 H 234 H
Meal type: Dinner
Meal type: Lunch
Amount consumed: 100%
Amount consumed: 100%
Patient Education
[2023-08-05 12:17] LABS: Glucose - Point of Care 156 mg/dl (70-99)
--- NOTE | 2023-08-05 12:37 | CM ---
LM with ANDERS Mukherjee concerning no insurance .
Prior CM gave info for [facility] DM supplies costs better and [facility] info for follow up.
He lives alone .
DM educator to see pt for new DM dx.
PLAN Home with [facility] .
[2023-08-05] MEDS: GLUCOTROL 5 MG PO ×2 (12:56→17:03)
[2023-08-05] MEDS: NOVOLOG FLEXPEN-LOW RESISTANCE 1 UNITS SC (12:57)
--- NOTE | 2023-08-05 14:05 | PN.DE ---
Diabetes Education
- -
08/05/2023: Diabetes Education Consult-
This is a 62 year old male with new T2DM diagnosis, A1C of 9.8%
Met with Mr. Martinez for monitor instructions. He has been provided with the Contour Next Ez glucometer. Reviewed proper testing technique for obtaining a blood glucose and testing pattern. Instructions with good return demonstration using the
glucometer were noted and result of 176 mg/dl 30 mins after lunch. Discussed importance of checking blood sugars 2x/day to assess food/medication effect on his BS, reducing CHO intake, being active and losing weight.
Will Provide information and handout on outpt education classes tomorrow. Pt will need RX for test strips and lancets for the Contour Next Ez
[2023-08-05 15:55] VITALS: BP 141/90
[2023-08-05 16:53] LABS: Glucose - Point of Care 104 mg/dl (70-99)
[2023-08-05] MEDS: NOVOLOG FLEXPEN-LOW RESISTANCE SC (17:02)
[2023-08-05] MEDS: LIPITOR 80 MG PO (17:03)
[2023-08-05] MEDS: TYLENOL 650 MG PO (17:03)
[2023-08-05] MEDS: FLUSH (NSS) 1 FLUSH IV (20:54)
[2023-08-05 21:52] LABS: Glucose - Point of Care 95 mg/dl (70-99)
[2023-08-05] MEDS: LANTUS 0.179999999999999993 UNITS SC (22:05)
[2023-08-05 23:04] VITALS: BP 141/83
[2023-08-06 03:03] LABS: Glucose - Point of Care 163 mg/dl (70-99)
[2023-08-06 07:20] VITALS: BP 143/98
--- NOTE | 2023-08-06 07:39 | PN.DE.MGMTRT ---
Insulin Management
- -
08/06/2023: Diabetes Management Consult Follow up
Patient admitted with aphasia and possible balance issues for more than 24 hours superimposed on cognitive impairment/difficulty with driving for at least 2 weeks. Brain MRI/MRA showed Acute to subacute nonhemorrhagic infarct and Multiple chronic
infarcts.
Pt awake, alert, oriented, offers no complaint, sitting up in bed, able to discuss diabetes mgt. State he has never seen a doctor before.
Glucose on admission was 323, A1C 9.8%, Newly dx Type 2 diabetes. Cr 0.9, eGFR>60. Also, new diagnosis HTN.
Glucose yesterday trended 234 fasting to 95 @ hs. Lantus increased to 18 units. Fasting glucose this AM 163 venous, 139 POC. Will decrease HS lantus 12 units with metformin 500 mg BID and glipizide 5 mg BID.
Monitor instructions were reinforced by CHASITY Tse. She reports when attempting to teach insulin pen use he could not follow the steps for insulin prep and injection technique. Will consider increasing metformin to 1000 BID tomorrow and
discontinue HS lantus tomorrow.
Diabetes History
- -
Type of Diabetes: 2
Pre-Admission Diabetes Regimen
Lab Results
Hemoglobin A1c 9.8 % (4.0-5.6) H 08/04/23 05:49
Insulin Pump Settings
IP Diabetes Regimen
08/05/23 08/05/23 08/05/23
07:43 12:16 16:51
POC Glucose 234 H 156 H 104 H
08/05/23 08/06/23
21:50 03:02
POC Glucose 95 163 H
Meal type: Dinner
Meal type: Lunch
Meal type: Breakfast
Amount consumed: 75%
Amount consumed: 30%
Amount consumed: 90%
Patient Education
[2023-08-06 07:42] LABS: Glucose - Point of Care 139 mg/dl (70-99)
[2023-08-06] MEDS: NOVOLOG FLEXPEN-LOW RESISTANCE SC ×3 (08:12→18:04)
[2023-08-06] MEDS: GLUCOPHAGE 500 MG PO ×2 (08:15→18:11)
[2023-08-06] MEDS: PLAVIX 75 MG PO (08:15)
[2023-08-06] MEDS: GLUCOTROL 5 MG PO ×2 (08:16→18:12)
[2023-08-06] MEDS: ZESTRIL 5 MG PO (08:16)
[2023-08-06] MEDS: LOW STRENGTH ASPIRIN 81 MG PO (08:17)
--- NOTE | 2023-08-06 10:04 | W.PN.UPDATE ---
Update Note
Progress Note Update
Imaging personally reviewed -CT angiogram and carotid duplex
Right internal carotid artery stenosis identified
No significant stenosis on the left
His acute stroke was not in a carotid distribution (brett).
Maximum medical therapy with antiplatelet and statin.
I provided him with my contact information. He should follow-up with me in the office as an outpatient to continue discussion regarding the management of his asymptomatic right carotid stenosis.
Call with questions or concerns
Brock Ríos III, MD
[facility]
[phone] (mwbw)
--- NOTE | 2023-08-06 11:17 | PTCARENOTE ---
Diabetes Education- Follow up visit for glucometer review and to instruct on insulin. he has the Contour NExt Gen and asked him to show me how to use, very impulsive, forgetting a few steps. Gently reminded him to slow down and reviewed step by step
testing technique. Result 199 mg/dl. Discussed action of Lantus insulin and importance to take at a consistent time. Instructed on use of insulin pen, he had great difficulty during return demonstration. He had trouble with dialing to 2 units, he
would dial to 4 and then show me stating he was at 2 units. This occurred numerous times. Had him practice x3 and he was not understanding the process. I don't feel that he will be able to self administered safely. Will TT NIKIA wallace the updates.
Education booklet with phone numbers provided for follow up questions. Information on outpt DSME classes given.
[2023-08-06 11:32] LABS: Glucose - Point of Care 126 mg/dl (70-99)
--- NOTE | 2023-08-06 12:37 | W.PN.HOSP.TC ---
Today's Communication/Plan
-
DC
Assessment / Plan
Assessment / Plan
Speech impairment for more than 24 hours. No obvious motor deficit currently. He does have balance issues noted by other people which he denies. He also had in the last 2 weeks issues with his cognition may be-was missing turns while driving.
Clinical suspicion is for CVA. CT head shows nothing acute but has old ischemic infarct in the right lentiform nucleus lacunar infarct and old right occipital lobe infarct. He has risk factors of tobacco chewing, new diagnosis of diabetes mellitus
and elevated blood pressure.
Started on aspirin and statins.
MRI of the brain and MRI of the head and neck report noted - Confirms an acute to subacute nonhemorrhagic infarct in the brett to the left side of midline. Multiple chronic infarcts noted including the right lentiform nucleus. He also show CTA
70% luminal diameter reduction of the right carotid bulb. Will ask vascular input on the right ICA pathology
Appt neurology input.
Goal is normotension -Improved with the initiation of treatments
ECHO normal EF and no significant valve disease.
Asymptomatic right ICA stenosis noted and vascular recommendation of outpatient follow-up on it noted.
New diabetes mellitus type 2-patient discussed to continue without major metabolic disturbance. hemoglobin A1c is 9.8 .Started on HS lantus and Metfromin.Glipizide added by Diabetic nurse educator. As pt not able to follow on all instruction
of insulin correctly will increase Metformin to higher dose starting tomorrow and follow Accuchecks at home.
He is also in the process of getting an appointment with free clinic at [facility].
New diagnosis of HTN -Elevated BP on adx -probably a hypertensive pt. goal is normotension. Continue on lisinopril.
Tobacco use-advised to stop chewing tobacco as it is a significant risk factor for stroke and also cardiovascular disease.
Full code
DC home today
DW Daughter Eryn on phone and went over the dx,tx and follow up plan
Total time of discharge 32 minutes
Anticipated Discharge: Today
Subjective/Interval History
-
Date of Service: August 06, 2023
No new symptoms
Objective Data
-
Vital Signs:
Vital Signs
Temp Pulse Resp BP Pulse Ox
99.5 F 97 26 143/98 93
08/06/23 07:20 08/06/23 08:16 08/06/23 07:20 08/06/23 08:16 08/06/23 07:20
I&O
08/05/23 08/06/23 08/07/23
06:59 06:59 06:59
Intake Total 780 / 780 1080 / 1080
Balance 780 / 780 1080 / 1080
Review of Systems
-
Respiratory: Denies Trouble Breathing
Cardiac: Denies Chest Pain or Palpitations
Abdomen/GI: Denies Nausea or Vomiting
Neuro: Denies Dizzy, Headache or Weakness
Physical Exam
-
General: Comfortable
HEENT: Moist Mucous Membranes
Respiratory: Clear to Auscultation
Neuro: AO x 3 and Slurred Speech (some dysarthria); Negative No Motor Deficits (subtle right arm drift and dysmetria noted by neuro ) or Facial Droop
Psych: Calm
Data Reviewed
-
Labs: Labs Reviewed by me
--- NOTE | 2023-08-06 13:02 | W.DS.TRANS ---
DC Summary - Equine Intern
-
Discharge Instructions:
Discharge Diagnosis/Procedures Acute pontine stroke, new diagnosis of diabetes
mellitus, new diagnosis of hypertension
Diet Diabetic, Carb Controlled,Low Cholesterol
Activity As tolerated
Driving Restrictions Not until seen by your Dr
Instructions:
Stand-Alone Forms:
Changes to Home Medications: Yes
Discharge Medications:
DC Medications w/original date entered in [employer]
pjabmlkfmnun-fxhaqrxh-nqwsce tablet (Multivitamin 50 Plus tablet) 1 tab PO DAILY Supplement 08/03/23
aspirin 81 mg chewable tablet 81 mg PO DAILY #30 tabs 08/06/23
atorvastatin 80 mg tablet 80 mg PO QPM #30 tabs 08/06/23
clopidogrel 75 mg tablet 75 mg PO DAILY #30 tabs 08/06/23
glipizide 5 mg tablet 5 mg PO BID@0800,1700 #60 tabs 08/06/23
lisinopril 5 mg tablet 5 mg PO DAILY #30 tabs 08/06/23
metformin 1,000 mg tablet 1,000 mg PO BID #60 tabs 08/06/23
Home Medication Changes
All medication except multivitamin are new
Pending Results: No
--- NOTE | 2023-08-06 13:32 | CM ---
MD entered order for discharge .
LM with ANDERS Mukherjee concerning no insurance .
Prior CM gave info for [employer] costs better and [facility] info for follow up.
PLAN Home with no needs
[2023-08-06 13:43] VITALS: BP 148/75
--- NOTE | 2023-08-06 15:25 | W.PN.NEURO.1 ---
Today's Communication / Plan
-
-Continue DAPT therapy plan for duration of 3 months total and then aspirin monotherapy afterwards, atorvastatin 80 mg daily
-Okay to continue the low-dose lisinopril
-Avoid rapid normalization of blood pressure
-Check CT head noncontrast now
-Needs PT reevaluation for consideration for acute rehabilitation given stroke symptom worsening
Will follow
Neuro Assessment/Plan
Assessment
62-year-old right-handed male presented to on 08/03/23 with report of slurred speech and balance issues starting three days ago on 08/02/23. 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
the past several weeks. CT head on arrival demonstrated an old right lentiform nucleus and right occipital ischemic infarct, no acute findings. He was outside of the time window for TNK/IAT. Blood sugar was 322 in the ER. Patient has not evaluated
by a physician in years.
MRI Brain 08/04/23: Acute to subacute nonhemorrhagic infarct in the brett to the left midline measuring 1.2 cm. Multiple chronic infarcts. Chronic senescent changes, as above.
MRA Head 08/04/23: No MRA evidence for vascular occlusion. Multifocal intracranial stenoses, most significant at the cavernous segment of the right internal carotid artery considered moderate to high-grade. Mild to moderate stenoses elsewhere in the
[place] within the limitations of motion artifact, as detailed above.
MRA Neck 08/04/23: Bilateral carotid bifurcation atherosclerosis causing 70% stenosis of the right carotid bulb and 30% stenosis of the left carotid bulb.
I. Acute/subacute left pontine ischemic stroke; etiology likely small vessel disease.
II. Old left thalamic and right lentiform nucleus ischemic strokes.
III. Moderate-severe multifocal intracranial stenosis.
IV. R ICA 70% stenosis on MRA neck imaging, currently asymptomatic.
V. New diagnosis NIDDM.
Worsening of neurologic symptoms of dysarthria right facial droop right arm more than leg weakness 08/05 compared to 08/04. Not uncommon for small vessel disease stroke do not have a maximal onset on the very first day of symptoms but rather have a
progression and worsening over a couple of days to reach maximum severity. The patient's blood pressure is in a medium high range I do not feel there is a severe perfusion deficit we can correct with IV fluids in the setting.
Subjective/Objective
Subjective Data
Date of Service: August 06, 2023
Patient and daughter noting worsening compared to yesterday in speech, right facial weakness, gait. Patient with no headache or vomiting, discussed some small strokes like his take a few days to reach maximum severity, will check a CT head and
re-evaluate for potential acute rehab candidacy.
Objective Data
Vital Signs
Temp Pulse Resp BP Pulse Ox
99.6 F 101 22 148/75 94
08/06/23 13:43 08/06/23 13:43 08/06/23 13:43 08/06/23 13:43 08/06/23 13:43
Lab Results
08/03/23 09:30
08/03/23 09:30
PT 13.2 Sec (11.4-14.6) 08/03/23 09:30
INR 1.02 08/03/23 09:30
APTT 27.0 Sec (23.4-35.0) 08/03/23 09:30
Sodium 134 mmol/L (135-145) L 08/03/23 09:30
Potassium 5.1 mmol/L (3.5-5.1) 08/03/23 09:30
BUN 23 mg/dl (9-20) H 08/03/23 09:30
Glucose 313 mg/dl (70-99) H 08/03/23 09:30
Calcium 9.8 mg/dl (8.4-10.2) 08/03/23 09:30
LDL Cholesterol, Calc 210 mg/dl 08/04/23 05:49
Patient Allergies
No Known Allergies Allergy (Unverified 08/03/23 09:05)
Review of Systems
-
History Source: Patient
All other systems: Reviewed and negative
Constitutional: No Symptoms
EENT: No Symptoms Reported
Respiratory: No Symptoms
Cardiac: No Symptoms
Abdomen/GI: No Symptoms
Genitourinary: No Symptoms
Musculoskeletal: No Symptoms
Skin: No Symptoms
Neuro: Weakness and Speech Problem
Endocrine: No Symptoms
Hematologic / Lymphatic: No Symptoms
Allergy / Immunology: No Symptoms
Physical Exam
-
General: Comfortable
Eyes: No Ptosis
HEENT: Normocephalic
Neck: No Bruits Bilaterally
Respiratory: Clear to Auscultation
Cardiac: Regular Rhythm
GI: Normal Bowel Sounds
Skin: Unremarkable
Extremities: No Clubbing
Psych: Unremarkable
Extended Neurological Exam
Mood & Affect: Mood Unremarkable and Affect Unremarkable
Attention Span & Concentration: Awake, Alert and Interactive
Memory: Unremarkable
Tremor: Hand Tremor Absent
Involuntary Movement: None
Speech: Dysarthric; Negative Expressive Aphasia or Receptive Aphasia
Cranial Nerve II: Left Eye: Pupillary Reactivity Unremarkable, Pupillary Size Unremarkable and Visual [place] Intact
Cranial Nerve II: Right Eye: Pupillary Reactivity Unremarkable, Pupillary Size Unremarkable and Visual [place] Intact
Cranial Nerves III, IV, : Extraocular Movement: Extraocular Movement Full in all Directions
Cranial Nerve VII: Facial Symmetry: Other (Right facial droop obvious)
Muscle Strength, Overall: Other (Right arm flexion shoulder aduction 4/5, right hip flexion 4+/5, right arm clear drift, minimal right leg drift)
Pronator Drift: Drift in Right Upper Extremity and Drift in Right Lower Extremity
Touch Sensation: Unremarkable
Babinski Sign: Absent Bilaterally
Gait & Station: Other (Worsened gait compared to 08/04, needs one person minimal assistance, ataxic, right leg dragging)
[2023-08-06 15:31] VITALS: BP 119/89
[2023-08-06 16:34] LABS: Glucose - Point of Care 127 mg/dl (70-99)
[2023-08-06 17:26] LABS: Glucose - Point of Care 138 mg/dl (70-99)
[2023-08-06] MEDS: LIPITOR 80 MG PO (18:12)
[2023-08-06 21:13] LABS: Glucose - Point of Care 142 mg/dl (70-99)
[2023-08-06] MEDS: LANTUS 0.119999999999999996 UNITS SC (22:12)
[2023-08-06 23:40] VITALS: BP 122/71
[2023-08-07] MEDS: TYLENOL 650 MG PO ×3 (00:04→23:21)
--- NOTE | 2023-08-07 04:54 | DOWNTIME ---
There was a [employer] Specialist Downtime on 08/07/2023 from 0100 to 08/07/2023 at 0337. Downtime documentation of patient's care, including medication administrations, has been reconciled in the electronic record per guidelines. Refer to the
patient's paper chart under the miscellaneous tab to see printed paper medication records and downtime forms.
[2023-08-07 07:02] VITALS: BP 126/70
--- NOTE | 2023-08-07 07:28 | W.PN.NEURO.1 ---
Today's Communication / Plan
-
-Continue DAPT therapy plan for duration of 3 months total and then aspirin monotherapy afterwards, atorvastatin 80 mg daily
-Okay to continue the low-dose lisinopril
-Avoid rapid normalization of blood pressure
-PT re-evaluation, suspect acute rehab candidate
Neuro Assessment/Plan
Assessment
62-year-old right-handed male presented to on 08/03/23 with report of slurred speech and balance issues starting three days ago on 08/02/23. 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
the past several weeks. CT head on arrival demonstrated an old right lentiform nucleus and right occipital ischemic infarct, no acute findings. He was outside of the time window for TNK/IAT. Blood sugar was 322 in the ER. Patient has not evaluated
by a physician in years.
MRI Brain 08/04/23: Acute to subacute nonhemorrhagic infarct in the brett to the left midline measuring 1.2 cm. Multiple chronic infarcts. Chronic senescent changes, as above.
MRA Head 08/04/23: No MRA evidence for vascular occlusion. Multifocal intracranial stenoses, most significant at the cavernous segment of the right internal carotid artery considered moderate to high-grade. Mild to moderate stenoses elsewhere in the
[place] within the limitations of motion artifact, as detailed above.
MRA Neck 08/04/23: Bilateral carotid bifurcation atherosclerosis causing 70% stenosis of the right carotid bulb and 30% stenosis of the left carotid bulb.
I. Acute/subacute left pontine ischemic stroke; etiology likely small vessel disease.
II. Old left thalamic and right lentiform nucleus ischemic strokes.
III. Moderate-severe multifocal intracranial stenosis.
IV. R ICA 70% stenosis on MRA neck imaging, currently asymptomatic.
V. New diagnosis NIDDM.
Worsening of neurologic symptoms of dysarthria right facial droop right arm more than leg weakness 08/05 compared to 08/04. Not uncommon for small vessel disease stroke do not have a maximal onset on the very first day of symptoms but rather have a
progression and worsening over a couple of days to reach maximum severity. The patient's blood pressure is in a medium high range I do not feel there is a severe perfusion deficit we can correct with IV fluids in the setting.
Subjective/Objective
Subjective Data
Date of Service: August 07, 2023
No acute events, remains stable with right arm and right leg weakness, no headache, no bleeding
Objective Data
Vital Signs
Temp Pulse Resp BP Pulse Ox
99.9 F 93 19 122/71 91
08/06/23 23:40 08/06/23 23:40 08/06/23 23:40 08/06/23 23:40 08/06/23 23:40
Lab Results
08/03/23 09:30
08/03/23 09:30
PT 13.2 Sec (11.4-14.6) 08/03/23 09:30
INR 1.02 08/03/23 09:30
APTT 27.0 Sec (23.4-35.0) 08/03/23 09:30
Sodium 134 mmol/L (135-145) L 08/03/23 09:30
Potassium 5.1 mmol/L (3.5-5.1) 08/03/23 09:30
BUN 23 mg/dl (9-20) H 08/03/23 09:30
Glucose 313 mg/dl (70-99) H 08/03/23 09:30
Calcium 9.8 mg/dl (8.4-10.2) 08/03/23 09:30
LDL Cholesterol, Calc 210 mg/dl 08/04/23 05:49
Patient Allergies
No Known Allergies Allergy (Unverified 08/03/23 09:05)
Review of Systems
-
History Source: Patient
All other systems: Reviewed and negative
Constitutional: No Symptoms
EENT: No Symptoms Reported
Respiratory: No Symptoms
Cardiac: No Symptoms
Abdomen/GI: No Symptoms
Genitourinary: No Symptoms
Musculoskeletal: No Symptoms
Skin: No Symptoms
Neuro: Weakness and Speech Problem; Negative Headache
Endocrine: No Symptoms
Hematologic / Lymphatic: No Symptoms
Allergy / Immunology: No Symptoms
Physical Exam
-
General: Comfortable
Eyes: No Ptosis
HEENT: Normocephalic
Neck: No Bruits Bilaterally
Respiratory: Clear to Auscultation
Cardiac: Regular Rhythm
GI: Normal Bowel Sounds
Skin: Unremarkable
Extremities: No Clubbing
Psych: Unremarkable
Extended Neurological Exam
Mood & Affect: Mood Unremarkable
Attention Span & Concentration: Awake, Alert and Interactive
Memory: Unremarkable
Tremor: Hand Tremor Absent
Involuntary Movement: None
Speech: Dysarthric; Negative Expressive Aphasia or Receptive Aphasia
Cranial Nerve II: Left Eye: Pupillary Reactivity Unremarkable and Pupillary Size Unremarkable
Cranial Nerve II: Right Eye: Pupillary Reactivity Unremarkable and Pupillary Size Unremarkable
Cranial Nerves III, IV, : Extraocular Movement: Extraocular Movement Full in all Directions
Cranial Nerve VII: Facial Symmetry: Other (Right facial weakness obvious)
Muscle Strength, Overall: Other (Right arm 4/5 shoulder abduction arm flexion right leg 4+/5 hip flexion, drift on right arm and leg)
Pronator Drift: Drift in Right Upper Extremity and Drift in Right Lower Extremity
Deep Tendon Reflexes: Trace Throughout
Coordination: Other (Mild ataxia right arm)
Gait & Station: Other (Abnormal gait mildly ataxic requires minimal assistance)
--- NOTE | 2023-08-07 07:42 | PN.DE.MGMTRT ---
Insulin Management
- -
08/07/2023: Diabetes Management Consult Follow up
Patient admitted with aphasia and possible balance issues for more than 24 hours superimposed on cognitive impairment/difficulty with driving for at least 2 weeks. Brain MRI/MRA showed Acute to subacute nonhemorrhagic infarct and Multiple chronic
infarcts.
Pt awake, alert, oriented, offers no complaint, sitting up in bed, able to discuss diabetes mgt. State he has never seen a doctor before.
Glucose on admission was 323, A1C 9.8%, New diagnosis Type 2 diabetes. Cr 0.9, eGFR>60. Also, new diagnosis HTN.
Glucose yesterday trended 126 to 142. Fasting glucose this AM venous, 153 POC. Received HS lantus 12 units with metformin 500 mg BID and glipizide 5 mg BID.
Monitor instructions were reinforced by CHASITY Tse. She reports when attempting to teach insulin pen use he could not follow the steps for insulin prep and injection technique.
For patient safety will stop lantus 12 units @ hs, increase metformin to 1000 mg BID. Patient for possible discharge today
Diabetes History
- -
Type of Diabetes: 2
Pre-Admission Diabetes Regimen
Lab Results
Hemoglobin A1c 9.8 % (4.0-5.6) H 08/04/23 05:49
Insulin Pump Settings
IP Diabetes Regimen
08/06/23 08/06/23 08/06/23
07:41 11:31 16:32
POC Glucose 139 H 126 H 127 H
08/06/23 08/06/23
17:25 21:12
POC Glucose 138 H 142 H
Meal type: Dinner
Meal type: Breakfast
Amount consumed: 100%
Amount consumed: 100%
Patient Education
[2023-08-07 08:05] LABS: Glucose - Point of Care 153 mg/dl (70-99)
[2023-08-07] MEDS: NOVOLOG FLEXPEN-LOW RESISTANCE 1 UNITS SC (08:20)
[2023-08-07] MEDS: PLAVIX 75 MG PO (08:20)
[2023-08-07] MEDS: GLUCOTROL 5 MG PO ×2 (08:21→16:41)
[2023-08-07] MEDS: ZESTRIL 5 MG PO (08:21)
[2023-08-07] MEDS: LOW STRENGTH ASPIRIN 81 MG PO (08:21)
[2023-08-07] MEDS: GLUCOPHAGE 1000 MG PO ×2 (08:22→16:41)
[2023-08-07 10:16] VITALS: BP 147/84; PULSE 92; O2SAT 97
--- NOTE | 2023-08-07 10:18 | PTOTSP ---
HIGH DENSITY PRESS OPERATOR Evaluation
Pt with at least moderate dysarthria. Intelligibility impaired at the conversation level with need for repetition and clarification.
Quick Aphasia Battery Form 1 completed. QAB overall score -9.33 WFL. Moderate difficulty with sentence comprehension noted with breakdown with complex yes/no questions. Suspect cognitive linguistic deficits impacting at this time.
MOCA version 8.1 completed with a score of 19/30 which is below normal (26/30) and concerning for a cognitive linguistic impairment.
Recommend:
1. Motor speech therapy at the acute care level and after D/C from acute care.
2. Continued cognitive linguistic evaluation and therapy after D/C from acute care.
3. Supervision with higher level tasks given cognitive impairments/safety risks.
--- NOTE | 2023-08-07 11:30 | W.PN.HOSP.TC ---
Today's Communication/Plan
-
see plan
Assessment / Plan
Assessment / Plan
CT HEAD 08/06/23
IMPRESSION:
No acute intracranial abnormality noted.
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
HEAD/NECK CTA 08/04/23
IMPRESSION:
1. No acute intracranial abnormality identified. Chronic right basal ganglia lacunar infarct and chronic right occipital infarct as seen prior.
2. Approximately 74% stenosis at the origin of the right internal carotid artery. Less than 50% stenosis of the extracranial left internal carotid artery. There is approximately 60% narrowing of the left common carotid artery.
3. Greater than 50% stenoses of both intracranial internal carotid arteries along cavernous segments. 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
4. Diffuse luminal irregularity of intracranial cerebral vascular distribution probably related to atherosclerosis. Focal stenoses right P2, right M1, left M2 as above.
MRI 08/04/23
IMPRESSION:
1. Acute to subacute nonhemorrhagic infarct in the [place] to the left midline measuring 1.2 cm.
2. Multiple chronic infarcts.
3. Chronic senescent changes, as above.
NECK MRA 08/04/23
IMPRESSION:
Bilateral carotid bifurcation atherosclerosis causing 70% stenosis of the right carotid bulb and 30% stenosis of the left carotid bulb.
HEAD MRA 08/04/23
IMPRESSION:
1. No MRA evidence for vascular occlusion.
2. Multifocal intracranial stenoses, most significant at the cavernous segment of the right internal carotid artery considered moderate to high-grade. Mild to moderate stenoses elsewhere in the [place] within the limitations of motion
artifact, as detailed above.
[place] nonhemorrhagic infarct
Dysarthria
-appreciate neuro
-new start aspirin/plavix - continue DAPT x 3 months then aspirin monotherapy
-continue statin
-TTE normal EF without significant valve disease
-Asymptomatic right ICA stenosis noted and vascular recommendation of outpatient follow-up on it noted.
-worsening in deficits noted on 08/05 which per neuro is not uncommon for small vessel disease stroke; progression to reach maximum severity. repeat head CT without new event
-acute rehab eval
New diabetes mellitus type 2-
- hemoglobin A1c is 9.8
-appreciate DM CALL OUT CLERK consult
-given difficulty comprehending insulin use- meds changed to metformin + glipizide
He is also in the process of getting an appointment with free clinic at [facility].
New diagnosis of HTN -Elevated BP on adx -probably a hypertensive pt. goal is normotension. Continue on lisinopril.
Tobacco use-advised to stop chewing tobacco as it is a significant risk factor for stroke and also cardiovascular disease.
Full code
Total time of discharge 32 minutes
Anticipated Discharge: 24 - 48 hours
Subjective/Interval History
-
Date of Service: August 07, 2023
patient states he is feeling better today
continued dysarthria
Objective Data
-
Vital Signs:
Vital Signs
Temp Pulse Resp BP Pulse Ox
99.4 F 103 16 126/70 93
08/07/23 07:02 08/07/23 07:02 08/07/23 07:02 08/07/23 07:02 08/07/23 08:10
I&O
08/06/23 08/07/23 08/08/23
06:59 06:59 06:59
Intake Total 1080 / 1080 960 / 960
Balance 1080 / 1080 960 / 960
Review of Systems
-
History Source: Patient
All other systems: Reviewed and negative
Physical Exam
-
General: Comfortable
HEENT: Moist Mucous Membranes
Respiratory: Clear to Auscultation
Cardiac: S1/S2
GI: Soft and Nontender
Musculoskeletal: No Edema
Skin: Warm and Dry; Negative Rash
Neuro: AO x 3 and Slurred Speech (+ dysarthria ); Negative No Motor Deficits (subtle right arm drift and dysmetria noted by neuro ) or Facial Droop
Psych: Calm
Data Reviewed
-
Diagnostic Radiology: Report Reviewed by me
Labs: Labs Reviewed by me
[2023-08-07 11:54] LABS: Glucose - Point of Care 136 mg/dl (70-99)
[2023-08-07] MEDS: NOVOLOG FLEXPEN-LOW RESISTANCE SC ×2 (11:56→16:40)
[2023-08-07 15:47] VITALS: BP 114/77
[2023-08-07 16:15] LABS: COVID-19 Antigen Negative (Negative)
[2023-08-07 16:31] LABS: Glucose - Point of Care 123 mg/dl (70-99)
[2023-08-07] MEDS: LIPITOR 80 MG PO (16:41)
--- NOTE | 2023-08-07 17:24 | CM ---
PT OT recommended acute rehab.
ANDERS Mukherjee said family is to provide financial information to apply for insurance coverage.
Referral placed in care port to [facility].
Spoke with Jared from [facility].
PLAN will depend of insurance process
[2023-08-07 21:19] LABS: Glucose - Point of Care 133 mg/dl (70-99)
[2023-08-07 23:23] VITALS: BP 126/75
[2023-08-08 03:32] VITALS: BP 119/78
[2023-08-08 07:24] VITALS: BP 145/97
--- NOTE | 2023-08-08 07:38 | PN.DE.MGMTRT ---
Insulin Management
- -
08/08/2023: Diabetes Management Consult Follow up
Patient admitted with aphasia and possible balance issues for more than 24 hours superimposed on cognitive impairment/difficulty with driving for at least 2 weeks. Brain MRI/MRA showed Acute to subacute nonhemorrhagic infarct and Multiple chronic
infarcts.
Pt awake, alert, oriented, offers no complaint, sitting up in bed, able to discuss diabetes mgt. State he has never seen a doctor before.
Glucose on admission was 323, A1C 9.8%, New diagnosis Type 2 diabetes. Cr 0.9, eGFR>60. Also, new diagnosis HTN.
Monitor instructions were reinforced by CHASITY Tse. She reports when attempting to teach insulin pen use he could not follow the steps for insulin prep and injection technique
Glucose yesterday trended 123 to 153. Fasting glucose this AM 163 POC. Lantus stopped 08/06, continued glipizide 5 mg BID, increased metformin to 1,000 mg BID.
Patient for possible discharge today
Diabetes History
- -
Type of Diabetes: 2
Pre-Admission Diabetes Regimen
Lab Results
Hemoglobin A1c 9.8 % (4.0-5.6) H 08/04/23 05:49
Insulin Pump Settings
IP Diabetes Regimen
08/07/23 08/07/23 08/07/23
08:00 11:52 16:30
POC Glucose 153 H 136 H 123 H
08/07/23
21:18
POC Glucose 133 H
Meal type: Dinner
Meal type: Breakfast
Amount consumed: 100%
Amount consumed: 100%
Patient Education
[2023-08-08] MEDS: GLUCOTROL 5 MG PO ×2 (07:40→17:26)
[2023-08-08] MEDS: LOW STRENGTH ASPIRIN 81 MG PO (07:40)
[2023-08-08] MEDS: GLUCOPHAGE 1000 MG PO ×2 (07:40→17:26)
[2023-08-08] MEDS: NOVOLOG FLEXPEN-LOW RESISTANCE 1 UNITS SC ×2 (07:40→13:10)
[2023-08-08] MEDS: ZESTRIL 5 MG PO (07:40)
[2023-08-08] MEDS: PLAVIX 75 MG PO (07:40)
[2023-08-08 07:42] LABS: Glucose - Point of Care 163 mg/dl (70-99)
--- NOTE | 2023-08-08 09:56 | PTOTSP ---
Video Swallow Examination
Mild pharyngeal dysphagia characterized by delayed swallow onset and initiation of laryngeal vestibular closure contributed to trace laryngeal penetration (transient with thin liquid and persistent with moderaely thick liquid). No aspiration but
risk is somewhat elevated.
Recommend
1. Continue regular solids and thin liquids
2. Meds one at a time with liquid as tolerated. Place whole in pureed if needed.
3. Upright with meals.
4. Dry swallow with thin liquid
5. Aspiration precautions.
6. Continued speech therapy
--- NOTE | 2023-08-08 10:04 | W.PN.HOSP.TC ---
Today's Communication/Plan
-
dispo planning
Assessment / Plan
Assessment / Plan
CT HEAD 08/06/23
IMPRESSION:
No acute intracranial abnormality noted.
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
HEAD/NECK CTA 08/04/23
IMPRESSION:
1. No acute intracranial abnormality identified. Chronic right basal ganglia lacunar infarct and chronic right occipital infarct as seen prior.
2. Approximately 74% stenosis at the origin of the right internal carotid artery. Less than 50% stenosis of the extracranial left internal carotid artery. There is approximately 60% narrowing of the left common carotid artery.
3. Greater than 50% stenoses of both intracranial internal carotid arteries along cavernous segments. 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
4. Diffuse luminal irregularity of intracranial cerebral vascular distribution probably related to atherosclerosis. Focal stenoses right P2, right M1, left M2 as above.
MRI 08/04/23
IMPRESSION:
1. Acute to subacute nonhemorrhagic infarct in the [place] to the left midline measuring 1.2 cm.
2. Multiple chronic infarcts.
3. Chronic senescent changes, as above.
NECK MRA 08/04/23
IMPRESSION:
Bilateral carotid bifurcation atherosclerosis causing 70% stenosis of the right carotid bulb and 30% stenosis of the left carotid bulb.
HEAD MRA 08/04/23
IMPRESSION:
1. No MRA evidence for vascular occlusion.
2. Multifocal intracranial stenoses, most significant at the cavernous segment of the right internal carotid artery considered moderate to high-grade. Mild to moderate stenoses elsewhere in the [place] within the limitations of motion
artifact, as detailed above.
[place] nonhemorrhagic infarct
Dysarthria
-appreciate neuro
-new start aspirin/plavix - continue DAPT x 3 months then aspirin monotherapy
-continue statin
-TTE normal EF without significant valve disease
-Asymptomatic right ICA stenosis noted and vascular recommendation of outpatient follow-up on it noted.
-worsening in deficits noted on 08/05 which per neuro is not uncommon for small vessel disease stroke; progression to reach maximum severity. repeat head CT without new event
-acute rehab eval
-awaiting medicaid application for dispo decision making - patient not safe to go home
New diabetes mellitus type 2-
- hemoglobin A1c is 9.8
-appreciate [employer] consult
-given difficulty comprehending insulin use- meds changed to metformin + glipizide
He is also in the process of getting an appointment with free clinic at [facility].
New diagnosis of HTN -Elevated BP on adx -probably a hypertensive pt. goal is normotension. Continue on lisinopril.
Tobacco use-advised to stop chewing tobacco as it is a significant risk factor for stroke and also cardiovascular disease.
Full code
Anticipated Discharge: 24 - 48 hours
Subjective/Interval History
-
Date of Service: August 08, 2023
no new complaints
seems to be speaking better today
Objective Data
-
Vital Signs:
Vital Signs
Temp Pulse Resp BP Pulse Ox
97.5 F 81 18 145/97 96
08/08/23 07:24 08/08/23 07:24 08/08/23 07:24 08/08/23 07:24 08/08/23 07:45
I&O
08/07/23 08/08/23 08/09/23
06:59 06:59 06:59
Intake Total 960 / 960 1140 / 1140
Balance 960 / 960 1140 / 1140
Review of Systems
-
History Source: Patient
All other systems: Reviewed and negative
Physical Exam
-
General: No Apparent Distress
HEENT: PERRLA
Respiratory: Clear to Auscultation; Negative Wheezes
Cardiac: Regular Rhythm and S1/S2
GI: Soft and Nontender
Musculoskeletal: No Edema
Skin: Warm and Dry; Negative Rash
Neuro: AO x 3 and Slurred Speech (+ dysarthria ); Negative No Motor Deficits (subtle right arm drift and dysmetria noted by neuro ) or Facial Droop
Psych: Calm
Data Reviewed
-
Diagnostic Radiology: Report Reviewed by me
Labs: Labs Reviewed by me
[2023-08-08 12:16] LABS: Glucose - Point of Care 166 mg/dl (70-99)
--- NOTE | 2023-08-08 14:04 | CON.MD ---
Documented by User: Fern Hutchinson PA-C 08/08/23 16:39
Consultation - Medical
-
Referring Provider: Valerie Collins
Chief Complaint: CVA
History of Present Illness: 62-year-old man with past medical history of diabetes hypertension, tobacco use with chewing presenting the hospital with slurred speech right arm weakness and balance issues. He has been found to have a left-sided
ischemic pontine stroke along with some chronic infarcts on the brain MRI. MRA shows multifocal intracranial stenosis seen in both the vertebral arteries intracranially as well as mild amount of the basilar artery, right-sided carotid bulb stenosis
74% and mild stenosis 30% of the left carotid bulb.
HEAD/NECK CTA 08/04/23
IMPRESSION:
1. No acute intracranial abnormality identified. Chronic right basal ganglia lacunar infarct and chronic right occipital infarct as seen prior.
2. Approximately 74% stenosis at the origin of the right internal carotid artery. Less than 50% stenosis of the extracranial left internal carotid artery. There is approximately 60% narrowing of the left common carotid artery.
3. Greater than 50% stenoses of both intracranial internal carotid arteries along cavernous segments. 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
4. Diffuse luminal irregularity of intracranial cerebral vascular distribution probably related to atherosclerosis. Focal stenoses right P2, right M1, left M2 as above.
MRI 08/04/23
IMPRESSION:
1. Acute to subacute nonhemorrhagic infarct in the brett to the left midline measuring 1.2 cm.
2. Multiple chronic infarcts.
3. Chronic senescent changes, as above.
TTE normal EF without significant valve disease
CONCLUSIONS
Normal LV size and function with no regional wall motion abnormalities.
LVEF is 60 to 65% by Chadwick's method of discs.
Mild concentric LVH.
Stage I diastolic dysfunction suggestive of abnormal relaxation.
Normal right ventricular size and function.
No significant valvular disease.
No prior study available for comparison.
Past Medical History: Diabetes, Hypertension Tobacco use with chewing
Procedure History: none
Family History: HTN
Social History:
Functional Level Premorbidly: Independent with all activities
Functional Level Currently: Eating�set up, grooming�supervision, lower extremity care�min assist, toilet transfer�min assist, bed mobility�supervision, ambulates 50 feet without device and min assist,
Tobacco: Tobacco chewing since 1980
Alcohol: Occasional
Drug use: Denies
Lives with: Alone
24-hour assistance available: Daughter can assist some
Number of floors: 1 st
# steps to enter: none
# steps to second floor: none
Potential First floor set up:yes
Driving: yes
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
�
Allergies:
Allergy/AdvReac Type Severity Reaction Status Date / Time
No Known Allergies Allergy Unverified 08/03/23 09:05
Review of Systems:
Constitutional: (x) Normal _
Eye: (x) Normal _
Ear/Nose/Throat: (x) Normal _
Respiratory: (x) Normal _
Cardiovascular: (x) Normal _
Gastrointestinal: (x) Normal _
Genitourinary: (x) Normal _
Musculoskeletal: (x) Normal _
Integumentary: (x) Normal _
Neurologic: (x) CVA
Psychiatric: (x) Normal _
Endocrine: (x) DM
Hematologic/Lymphatic: (x) Normal _
Allergic/Immunologic: (x) Normal _
Medications:
Active Current Visit Medication List
Category Date Time Status
Acetaminophen [Tylenol/Feverall] Med 08/03/23 13:42 Active
650 mg RECTAL Q4HPRN PRN
Acetaminophen [Tylenol] Med 08/03/23 13:42 Active
650 mg PO Q4HPRN PRN
Aspirin Chewable [Low Strength Aspirin] Med 08/04/23 08:00 Active
81 mg PO DAILY
Atorvastatin [Lipitor] Med 08/04/23 18:00 Active
80 mg PO QPM
Clopidogrel Bisulfate [Plavix] Med 08/04/23 10:00 Active
75 mg PO DAILY
Dextrose 50%-Water [Dextrose 50% Syringe] Med 08/03/23 13:42 Active
12.5 grams IV [id number] PRN
Flush (0.9% Sodium Chloride) [Flush (Nss)] Med 08/03/23 14:00 Active
See Dose Instructions IV PER PROTOCOL
GlipiZIDE [Glucotrol] Med 08/05/23 17:00 Active
5 mg PO BID@0800,1700
Glucagon [GlucaGen] Med 08/03/23 13:42 Active
1 mg IM PRN PRN
HydrALAZINE [Apresoline] Med 08/03/23 13:42 Active
5 mg IV Q4HPRN PRN
Insulin Aspart Corrective Low [Novolog Flexpen-Low Med 08/03/23 16:30 Active
Resistance]
See Protocol SC AC
Lisinopril [Zestril] Med 08/04/23 13:00 Active
5 mg PO DAILY
METFORMIN HCl [Glucophage] Med 08/07/23 08:00 Active
1,000 mg PO BID@0800,1700
Magnesium Hydroxide [Milk of Magnesia] Med 08/03/23 13:42 Active
30 ml PO HSPRN PRN
Vitals:
Temp Pulse Resp BP Pulse Ox
97.5 F 81 18 145/97 96
08/08/23 07:24 08/08/23 07:24 08/08/23 07:24 08/08/23 07:24 08/08/23 07:45
Height 5 ft 6 in
Actual Weight 90.991 kg
Body Mass Index (BMI) 32.4
Physical Exam:
General Appearance/Observation: Well-developed, well-nourished individual in no apparent distress.
Pain/Comfort Assessment: Denies
Mood/Affect: Appropriate
Integumentary/Operative Site:
�� Pressure Ulcer Evaluation: absent over heels.
��
�� Other Type of Wound: absent
Eyes: Conjunctiva/Lids: normal ��� Pupils: pupils equal round and reactive to light and Accommodation
Ears/Nose/Throat: oral mucosa moist,� throat clear.������������ Lips/Teeth/Gums: normal
Neck: No muscle spasm or tenderness
Cardiovascular: Heart: regular, no murmur
Pulses: dorsalis pedis 2+ bilaterally
Respiratory: Respiratory Effort/Chest Expansion: normal ������� Auscultation: Clear to auscultation bilaterally
Gastrointestinal: abdomen not tender, no distension, normal abdominal bowel sounds
Genitourinary: No Ríos
Extremities: Edema: None Cyanosis: None Trophic changes: None
Neurology Exam:
Orientation: Alert, Oriented to self, Time, Place
Memory: Intact for immediate medical concerns
Higher cortical function- able to count backward from 20 by 3
Repetition: Intact
Comprehension: Intact
Two step command: Intact
Naming: Intact. Able to tell time
Cranial Nerves:
�� CNII: Pupillary light reflex: Intact��� Visual Field: Intact
�� CN III, IV, : Extraocular muscles: Intact
�� CN V: Facial Sensation at Forehead: Intact, Maxilla: Intact, Mandible: Intact
�� CN VII: Facial movement: mild right facial weakness
�� CN VIII: Hearing: Normal
�� CN IX/X: Speech & swallow:dysarthric, Position of Uvula: Midline
�� CN XI: Shoulder shrug: slight weakness on right side
�� CN XII: Tongue protrusion: slight deviation
Sensory:
�� Light touch: Intact in bilateral upper and lower extremities
��
Reflexes:
�� Biceps: 2+ bilaterally
�� Brachioradialis: 2+ bilaterally
�� Triceps: 2+ bilaterally
�� Patellar: 2+ bilaterally
�� Achilles: 2+ bilaterally
�� Babinski: Down going bilaterally
�� Clonus: None
�� Alfreda: Negative bilaterally
Cerebellar: Dysmetria/Ataxia: mild right arm drift, apraxia
Musculoskeletal:
Motor: (Manual muscle scale 0-5)
Muscle SA EF WE EE FF FA HF KE DF EHL PF
Right� 4 4 4 4 3 3 4 4 5 5 5
Left 5 5 5 5 5 5 5 5 5 5 5
Tone: Normal in all extremities
Range of Motion: Passively within normal limits in all extremities
Lab Results
Labs
WBC 7.1 10^3/uL (4.8-10.8) 08/03/23 09:30
RBC 5.60 10^6/uL (4.70-6.10) 08/03/23 09:30
Hgb 17.1 g/dL (13.0-18.0) 08/03/23 09:30
Hct 47.1 % (39.0-52.0) 08/03/23 09:30
MCV 84.1 fL (80.0-94.0) 08/03/23 09:30
MCH 30.5 pg (27.0-31.0) 08/03/23 09:30
MCHC 36.3 g/dL (33.0-37.0) 08/03/23 09:30
RDW 12.7 % (11.5-14.5) 08/03/23 09:30
Plt Count 237 10^3/uL (130-400) 08/03/23 09:30
MPV 8.6 fL (7.4-10.4) 08/03/23 09:30
Abs Immat Gran (auto) 0.0 10^3/uL (0-0.05) 08/03/23 09:30
Absolute Neuts (auto) 4.9 10^3/uL (1.4-6.5) 08/03/23 09:30
Absolute Lymphs (auto) 1.6 10^3/uL (1.2-3.4) 08/03/23 09:30
Absolute Monos (auto) 0.4 10^3/uL (0.1-0.6) 08/03/23 09:30
Absolute Eos (auto) 0.1 10^3/uL (0-0.7) 08/03/23 09:30
Absolute Basos (auto) 0.0 10^3/uL (0-0.2) 08/03/23 09:30
Immature Gran % 0.1 % (0-0.5) 08/03/23 09:30
Neutrophils % 68.9 % (42.2-75.2) 08/03/23 09:30
Lymphocytes % 22.9 % (20.5-51.1) 08/03/23:30
Monocytes % 6.0 % (1.7-9.3) 08/03/23:30
Eosinophils % 1.7 % (0-6) 08/03/23 09:30
Basophils % 0.4 % (0-2) 08/03/23 09:30
Nucleated RBC % 0 % (-) 08/03/23:30
PT 13.2 Sec (11.4-14.6) 08/03/23 09:30
INR 1.02 08/03/23 09:30
APTT 27.0 Sec (23.4-35.0) 08/03/23 09:30
Sodium 134 mmol/L (135-145) L 08/03/23 09:30
Potassium 5.1 mmol/L (3.5-5.1) 08/03/23 09:30
Chloride 103 mmol/L (98-107) 08/03/23 09:30
Carbon Dioxide 22 mmol/L (22-30) 08/03/23 09:30
BUN 23 mg/dl (9-20) H 08/03/23 09:30
Creatinine 0.9 mg/dL (0.7-1.3) 08/03/23 09:30
eGFR > 60.00 08/03/23 09:30
Glucose 313 mg/dl (70-99) H 08/03/23 09:30
Hemoglobin A1c 9.8 % (4.0-5.6) H 06/16/24 05:49
Calcium 9.8 mg/dl (8.4-10.2) 08/03/23 09:30
Total Bilirubin 0.8 mg/dl (0.2-1.3) 08/03/23 09:30
AST 20 U/L (17-59) 08/03/23 09:30
ALT 28 U/L (0-50) 08/03/23 09:30
Alkaline Phosphatase 96 U/L (38-126) 08/03/23 09:30
Total Protein 6.9 g/dl (6.3-8.2) 08/03/23 09:30
Albumin 4.6 g/dl (3.5-5.0) 08/03/23 09:30
Triglycerides 258 mg/dl (10-149) H 08/04/23 05:49
Total Cholesterol 300 mg/dl (50-199) H 08/04/23 05:49
LDL Cholesterol, Calc 210 mg/dl 08/04/23 05:49
VLDL Cholesterol, Calc 51 mg/dl (0-30) H 08/04/23 05:49
HDL Cholesterol 39 mg/dl 08/04/23 05:49
SARS-CoV-2 Antigen Negative (Negative) 08/07/23 15:34
POC Glucose 166 mg/dl (70-99) H 08/08/23 12:14
�
Diagnostic Results: as per HPI
Assessment 62-year-old man with PMH of (diabetes, hypertension, tobacco chewing found to have a left-sided ischemic pontine stroke along with some chronic infarcts on the brain MRI. MRA shows multifocal intracranial stenosis seen in both the
vertebral arteries intracranially as well as mild amount of the basilar artery, right-sided carotid bulb stenosis 74% and mild stenosis 30% of the left carotid bulb.
Plan
PT/OT to increase independence with ADLs, improve balance, coordination, endurance, strength, mobility, community reintegration, decreased burden of care on others and family education.
CVA: Neurology recommends-aspirin and clopidogrel for 3 months given the intracranial stenosis then after 3 months stop clopidogrel. Statin, and blood pressure control (SBP less than 180 and diastolic less than 100 to participate with therapy for
ischemic stroke). Continue to monitor neurologic status.
right dominant hemiparesis: High risk for falls and sliding out of chair/bed. Safety reinforced.
- Avoid using affected arm to help lift or pull patient as this will cause trauma to the shoulder.
Dysphagia: video swallow- Honey consistency barium by spoon: Deep penetration to the level of the vocal cords. Thin liquid barium by cup: Transient penetration with consecutive cup sips. No aspiration. Speech evaluation, aspiration precautions.�
Advance diet as tolerated.
Dysarthria: speech evaluation
HTN: Lisinopril 5 mg daily, hydralazine 5 mg IV every 4 as needed. monitor closely
HLD: Atorvastatin 80 mg daily
DM II: Accu-Cheks, insulin sliding scale, glipizide 5 mg twice daily metformin 1000 bid, aspart 5.
Psych: Psychology consult.� Monitor mood, adjust medications as needed.
Skin: monitor for pressure sores/rashes/lesions.
Pain: acetaminophen as needed.
Bowel: Colace and Senna, PRN bisacodyl.
Bladder: Time void, PVRs, PRN straight cath.
GI Prophylaxis: Pantoprazole
DVT Prophylaxis: Mechanical and Heparin SC
Pulmonary: Incentive spirometry
Safety: Continue to reinforce assistance with all transfers.
Code Status:� Full code
Dispo (date/plan/equipment needs): Home with family care.� Social history reviewed.
Functional and Medical Goals: Modified Independent with ADL�s, ambulation, transfers
Discharge Destination: Acute Inpatient Rehabilitation
Summary of recommendations: Patient would benefit from acute inpatient rehabilitation for PT/OT to increase independence with ADLs, improve balance, coordination, endurance, strength, mobility, community reintegration, decreased burden of care on
others and family education based on his current functional level of Eating�set up, grooming�supervision, lower extremity care�min assist, toilet transfer�min assist, bed mobility�supervision, ambulates 50 feet without device and min assist,
CVA: Neurology recommends-aspirin and clopidogrel for 3 months given the intracranial stenosis then after 3 months stop clopidogrel. Statin, and blood pressure control (SBP less than 180 and diastolic less than 100 to participate with therapy for
ischemic stroke). Continue to monitor neurologic status.
right dominant hemiparesis: High risk for falls and sliding out of chair/bed. Safety reinforced.
- Avoid using affected arm to help lift or pull patient as this will cause trauma to the shoulder.
Dysphagia: video swallow- Honey consistency barium by spoon: Deep penetration to the level of the vocal cords. Thin liquid barium by cup: Transient penetration with consecutive cup sips. No aspiration. Speech evaluation, aspiration precautions.�
Advance diet as tolerated.
Dysarthria: speech evaluation
HTN: Lisinopril 5 mg daily, hydralazine 5 mg IV every 4 as needed. monitor closely
Pain: acetaminophen as needed.
Bowel: Colace and Senna, PRN bisacodyl.
GI Prophylaxis: Pantoprazole
Bladder: Time void, PVRs, PRN straight cath.
GI Prophylaxis: Pantoprazole
DVT Prophylaxis: Recommend- Mechanical, and Heparin SC
Pulmonary: Incentive spirometry
Thank you for allowing me to care for your patient. Please contact me with any questions or concerns.
This note was dictated using a voice recognition system. Please excuse any typographical errors from retail wireless associate. If you believe there are any discrepancies, please notify our office.

Documented by User: Arvin Baldwin MD 08/08/23 16:58
Consultation - Medical
-
Referring Provider: Valerie Collins
Chief Complaint: CVA
History of Present Illness: 62-year-old man with past medical history of diabetes hypertension, tobacco use with chewing presenting the hospital with slurred speech right arm weakness and balance issues. He has been found to have a left-sided
ischemic pontine stroke along with some chronic infarcts on the brain MRI. MRA shows multifocal intracranial stenosis seen in both the vertebral arteries intracranially as well as mild amount of the basilar artery, right-sided carotid bulb stenosis
74% and mild stenosis 30% of the left carotid bulb.
HEAD/NECK CTA 08/04/23
IMPRESSION:
1. No acute intracranial abnormality identified. Chronic right basal ganglia lacunar infarct and chronic right occipital infarct as seen prior.
2. Approximately 74% stenosis at the origin of the right internal carotid artery. Less than 50% stenosis of the extracranial left internal carotid artery. There is approximately 60% narrowing of the left common carotid artery.
3. Greater than 50% stenoses of both intracranial internal carotid arteries along cavernous segments. 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
4. Diffuse luminal irregularity of intracranial cerebral vascular distribution probably related to atherosclerosis. Focal stenoses right P2, right M1, left M2 as above.
MRI 08/04/23
IMPRESSION:
1. Acute to subacute nonhemorrhagic infarct in the brett to the left midline measuring 1.2 cm.
2. Multiple chronic infarcts.
3. Chronic senescent changes, as above.
TTE normal EF without significant valve disease
CONCLUSIONS
Normal LV size and function with no regional wall motion abnormalities.
LVEF is 60 to 65% by Chadwick's method of discs.
Mild concentric LVH.
Stage I diastolic dysfunction suggestive of abnormal relaxation.
Normal right ventricular size and function.
No significant valvular disease.
No prior study available for comparison.
Past Medical History: Diabetes, Hypertension Tobacco use with chewing
Procedure History: none
Family History: HTN
Social History:
Functional Level Premorbidly: Independent with all activities
Functional Level Currently: Eating�set up, grooming�supervision, lower extremity care�min assist, toilet transfer�min assist, bed mobility�supervision, ambulates 50 feet without device and min assist,
Tobacco: Tobacco chewing since 1980
Alcohol: Occasional
Drug use: Denies
Lives with: Alone
24-hour assistance available: Daughter can assist some
Number of floors: 1 st
# steps to enter: none
# steps to second floor: none
Potential First floor set up:yes
Driving: yes
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
�
Allergies:
Allergy/AdvReac Type Severity Reaction Status Date / Time
No Known Allergies Allergy Unverified 08/03/23 09:05
Review of Systems:
Constitutional: (x) Normal _
Eye: (x) Normal _
Ear/Nose/Throat: (x) Normal _
Respiratory: (x) Normal _
Cardiovascular: (x) Normal _
Gastrointestinal: (x) Normal _
Genitourinary: (x) Normal _
Musculoskeletal: (x) Normal _
Integumentary: (x) Normal _
Neurologic: (x) CVA
Psychiatric: (x) Normal _
Endocrine: (x) DM
Hematologic/Lymphatic: (x) Normal _
Allergic/Immunologic: (x) Normal _
Medications:
Active Current Visit Medication List
Category Date Time Status
Acetaminophen [Tylenol/Feverall] Med 08/03/23 13:42 Active
650 mg RECTAL Q4HPRN PRN
Acetaminophen [Tylenol] Med 08/03/23 13:42 Active
650 mg PO Q4HPRN PRN
Aspirin Chewable [Low Strength Aspirin] Med 08/04/23 08:00 Active
81 mg PO DAILY
Atorvastatin [Lipitor] Med 08/04/23 18:00 Active
80 mg PO QPM
Clopidogrel Bisulfate [Plavix] Med 08/04/23 10:00 Active
75 mg PO DAILY
Dextrose 50%-Water [Dextrose 50% Syringe] Med 08/03/23 13:42 Active
12.5 grams IV [id number] PRN
Flush (0.9% Sodium Chloride) [Flush (Nss)] Med 08/03/23 14:00 Active
See Dose Instructions IV PER PROTOCOL
GlipiZIDE [Glucotrol] Med 08/05/23 17:00 Active
5 mg PO BID@0800,1700
Glucagon [GlucaGen] Med 08/03/23 13:42 Active
1 mg IM PRN PRN
HydrALAZINE [Apresoline] Med 08/03/23 13:42 Active
5 mg IV Q4HPRN PRN
Insulin Aspart Corrective Low [Novolog Flexpen-Low Med 08/03/23 16:30 Active
Resistance]
See Protocol SC AC
Lisinopril [Zestril] Med 08/04/23 13:00 Active
5 mg PO DAILY
METFORMIN HCl [Glucophage] Med 08/07/23 08:00 Active
1,000 mg PO BID@0800,1700
Magnesium Hydroxide [Milk of Magnesia] Med 08/03/23 13:42 Active
30 ml PO HSPRN PRN
Vitals:
Temp Pulse Resp BP Pulse Ox
97.5 F 81 18 145/97 96
08/08/23 07:24 08/08/23 07:24 08/08/23 07:24 08/08/23 07:24 08/08/23 07:45
Height 5 ft 6 in
Actual Weight 90.991 kg
Body Mass Index (BMI) 32.4
Physical Exam:
General Appearance/Observation: Well-developed, well-nourished individual in no apparent distress.
Pain/Comfort Assessment: Denies
Mood/Affect: Appropriate
Integumentary/Operative Site:
�� Pressure Ulcer Evaluation: absent over heels.
��
�� Other Type of Wound: absent
Eyes: Conjunctiva/Lids: normal ��� Pupils: pupils equal round and reactive to light and Accommodation
Ears/Nose/Throat: oral mucosa moist,� throat clear.������������ Lips/Teeth/Gums: normal
Neck: No muscle spasm or tenderness
Cardiovascular: Heart: regular, no murmur
Pulses: dorsalis pedis 2+ bilaterally
Respiratory: Respiratory Effort/Chest Expansion: normal ������� Auscultation: Clear to auscultation bilaterally
Gastrointestinal: abdomen not tender, no distension, normal abdominal bowel sounds
Genitourinary: No Ríos
Extremities: Edema: None Cyanosis: None Trophic changes: None
Neurology Exam:
Orientation: Alert, Oriented to self, Time, Place
Memory: Intact for immediate medical concerns
Higher cortical function- able to count backward from 20 by 3
Repetition: Intact
Comprehension: Intact
Two step command: Intact
Naming: Intact. Able to tell time
Cranial Nerves:
�� CNII: Pupillary light reflex: Intact��� Visual Field: Intact
�� CN III, IV, : Extraocular muscles: Intact
�� CN V: Facial Sensation at Forehead: Intact, Maxilla: Intact, Mandible: Intact
�� CN VII: Facial movement: mild right facial weakness
�� CN VIII: Hearing: Normal
�� CN IX/X: Speech & swallow:dysarthric, Position of Uvula: Midline
�� CN XI: Shoulder shrug: slight weakness on right side
�� CN XII: Tongue protrusion: slight deviation
Sensory:
�� Light touch: Intact in bilateral upper and lower extremities
��
Reflexes:
�� Biceps: 2+ bilaterally
�� Brachioradialis: 2+ bilaterally
�� Triceps: 2+ bilaterally
�� Patellar: 2+ bilaterally
�� Achilles: 2+ bilaterally
�� Babinski: Down going bilaterally
�� Clonus: None
�� Alfreda: Negative bilaterally
Cerebellar: Dysmetria/Ataxia: mild right arm drift, apraxia
Musculoskeletal:
Motor: (Manual muscle scale 0-5)
Muscle SA EF WE EE FF FA HF KE DF EHL PF
Right� 4 4 4 4 3 3 4 4 5 5 5
Left 5 5 5 5 5 5 5 5 5 5 5
Tone: Normal in all extremities
Range of Motion: Passively within normal limits in all extremities
Lab Results
Labs
WBC 7.1 10^3/uL (4.8-10.8) 08/03/23 09:30
RBC 5.60 10^6/uL (4.70-6.10) 08/03/23:30
Hgb 17.1 g/dL (13.0-18.0) 08/03/23:30
Hct 47.1 % (39.0-52.0) 08/03/23:
MCV 84.1 fL (80.0-94.0) 08/03/23:
MCH 30.5 pg (27.0-31.0) 08/03/23:
MCHC 36.3 g/dL (33.0-37.0) 08/03/23:
RDW 12.7 % (11.5-14.5) 08/03/23:30
Plt Count 237 10^3/uL (130-400) 08/03/23:30
MPV 8.6 fL (7.4-10.4) 08/03/23:30
Abs Immat Gran (auto) 0.0 10^3/uL (0-0.05) 08/03/23:30
Absolute Neuts (auto) 4.9 10^3/uL (1.4-6.5) 08/03/23:30
Absolute Lymphs (auto) 1.6 10^3/uL (1.2-3.4) 08/03/23:30
Absolute Monos (auto) 0.4 10^3/uL (0.1-0.6) 08/03/23:30
Absolute Eos (auto) 0.1 10^3/uL (0-0.7) 08/03/23:
Absolute Basos (auto) 0.0 10^3/uL (0-0.2) 08/03/23:30
Immature Gran % 0.1 % (0-0.5) 08/03/23:
Neutrophils % 68.9 % (42.2-75.2) 08/03/23 09:30
Lymphocytes % 22.9 % (20.5-51.1) 08/03/23 09:30
Monocytes % 6.0 % (1.7-9.3) 08/03/23 09:30
Eosinophils % 1.7 % (0-6) 08/03/23 09:30
Basophils % 0.4 % (0-2) 08/03/23:30
Nucleated RBC % 0 % (-) 08/03/23:30
PT 13.2 Sec (11.4-14.6) 08/03/23:30
INR 1.02 08/03/23:30
APTT 27.0 Sec (23.4-35.0) 08/03/23 09:30
Sodium 134 mmol/L (135-145) L 08/03/23 09:30
Potassium 5.1 mmol/L (3.5-5.1) 08/03/23 09:30
Chloride 103 mmol/L (98-107) 08/03/23 09:30
Carbon Dioxide 22 mmol/L (22-30) 08/03/23 09:30
BUN 23 mg/dl (9-20) H 08/03/23 09:30
Creatinine 0.9 mg/dL (0.7-1.3) 08/03/23 09:30
eGFR > 60.00 08/03/23 09:30
Glucose 313 mg/dl (70-99) H 08/03/23 09:30
Hemoglobin A1c 9.8 % (4.0-5.6) H 08/04/23 05:49
Calcium 9.8 mg/dl (8.4-10.2) 08/03/23 09:30
Total Bilirubin 0.8 mg/dl (0.2-1.3) 08/03/23 09:30
AST 20 U/L (17-59) 08/03/23 09:30
ALT 28 U/L (0-50) 08/03/23 09:30
Alkaline Phosphatase 96 U/L (38-126) 08/03/23 09:30
Total Protein 6.9 g/dl (6.3-8.2) 08/03/23 09:30
Albumin 4.6 g/dl (3.5-5.0) 08/03/23 09:30
Triglycerides 258 mg/dl (10-149) H 08/04/23 05:49
Total Cholesterol 300 mg/dl (50-199) H 08/04/23 05:49
LDL Cholesterol, Calc 210 mg/dl 08/04/23 05:49
VLDL Cholesterol, Calc 51 mg/dl (0-30) H 08/04/23 05:49
HDL Cholesterol 39 mg/dl 08/04/23 05:49
SARS-CoV-2 Antigen Negative (Negative) 08/07/23 15:34
POC Glucose 166 mg/dl (70-99) H 08/08/23 12:14
�
Diagnostic Results: as per HPI
Assessment 62-year-old man with PMH of (diabetes, hypertension, tobacco chewing found to have a left-sided ischemic pontine stroke along with some chronic infarcts on the brain MRI. MRA shows multifocal intracranial stenosis seen in both the
vertebral arteries intracranially as well as mild amount of the basilar artery, right-sided carotid bulb stenosis 74% and mild stenosis 30% of the left carotid bulb.
Plan
PT/OT to increase independence with ADLs, improve balance, coordination, endurance, strength, mobility, community reintegration, decreased burden of care on others and family education.
CVA: Neurology recommends-aspirin and clopidogrel for 3 months given the intracranial stenosis then after 3 months stop clopidogrel. Statin, and blood pressure control (SBP less than 180 and diastolic less than 100 to participate with therapy for
ischemic stroke). Continue to monitor neurologic status.
right dominant hemiparesis: High risk for falls and sliding out of chair/bed. Safety reinforced.
- Avoid using affected arm to help lift or pull patient as this will cause trauma to the shoulder.
Dysphagia: video swallow- Honey consistency barium by spoon: Deep penetration to the level of the vocal cords. Thin liquid barium by cup: Transient penetration with consecutive cup sips. No aspiration. Speech evaluation, aspiration precautions.�
Advance diet as tolerated.
Dysarthria: speech evaluation
HTN: Lisinopril 5 mg daily, hydralazine 5 mg IV every 4 as needed. monitor closely
HLD: Atorvastatin 80 mg daily
DM II: Accu-Cheks, insulin sliding scale, glipizide 5 mg twice daily metformin 1000 bid, aspart 5.
Psych: Psychology consult.� Monitor mood, adjust medications as needed.
Skin: monitor for pressure sores/rashes/lesions.
Pain: acetaminophen as needed.
Bowel: Colace and Senna, PRN bisacodyl.
Bladder: Time void, PVRs, PRN straight cath.
GI Prophylaxis: Pantoprazole
DVT Prophylaxis: Mechanical and Heparin SC
Pulmonary: Incentive spirometry
Safety: Continue to reinforce assistance with all transfers.
Code Status:� Full code
Dispo (date/plan/equipment needs): Home with family care.� Social history reviewed.
Functional and Medical Goals: Modified Independent with ADL�s, ambulation, transfers
Discharge Destination: Acute Inpatient Rehabilitation
Summary of recommendations: Patient would benefit from acute inpatient rehabilitation for PT/OT to increase independence with ADLs, improve balance, coordination, endurance, strength, mobility, community reintegration, decreased burden of care on
others and family education based on his current functional level of Eating�set up, grooming�supervision, lower extremity care�min assist, toilet transfer�min assist, bed mobility�supervision, ambulates 50 feet without device and min assist,
CVA: Neurology recommends-aspirin and clopidogrel for 3 months given the intracranial stenosis then after 3 months stop clopidogrel. Statin, and blood pressure control (SBP less than 180 and diastolic less than 100 to participate with therapy for
ischemic stroke). Continue to monitor neurologic status.
right dominant hemiparesis: High risk for falls and sliding out of chair/bed. Safety reinforced.
- Avoid using affected arm to help lift or pull patient as this will cause trauma to the shoulder.
Dysphagia: video swallow- Honey consistency barium by spoon: Deep penetration to the level of the vocal cords. Thin liquid barium by cup: Transient penetration with consecutive cup sips. No aspiration. Speech evaluation, aspiration precautions.�
Advance diet as tolerated.
Dysarthria: speech evaluation
HTN: Lisinopril 5 mg daily, hydralazine 5 mg IV every 4 as needed. monitor closely
Pain: acetaminophen as needed.
Bowel: Colace and Senna, PRN bisacodyl.
GI Prophylaxis: Pantoprazole
Bladder: Time void, PVRs, PRN straight cath.
GI Prophylaxis: Pantoprazole
DVT Prophylaxis: Recommend- Mechanical, and Heparin SC
Pulmonary: Incentive spirometry
Attending note:
Patient seen this afternoon and examined at bedside. Discussed with Fern Hutchinson PA-C and agree with the above examination, note and plan as described. Patient with right sided weakness and apraxia s/p CVA and requiring Min A for mobility and
ambulation and not safe for discharge home alone. Recommend acute inpatient rehabilitation to improve strength, mobility, transfers, ADLs, speech intelligibility with goals of mod I for above before discharge home. Will be able to tolerate 3hrs/day
of multispecialty therapy services to achieve above goals.
Thank you for allowing me to care for your patient. Please contact me with any questions or concerns.
This note was dictated using a voice recognition system. Please excuse any typographical errors from retail wireless associate. If you believe there are any discrepancies, please notify our office.
[2023-08-08 14:57] VITALS: BP 143/85; PULSE 92; O2SAT 95
[2023-08-08 17:11] LABS: Glucose - Point of Care 204 mg/dl (70-99)
[2023-08-08] MEDS: LIPITOR 80 MG PO (17:26)
[2023-08-08] MEDS: NOVOLOG FLEXPEN-LOW RESISTANCE 2 UNITS SC (17:26)
[2023-08-08 17:30] VITALS: BP 144/97
[2023-08-08 21:19] LABS: Glucose - Point of Care 138 mg/dl (70-99)
[2023-08-08 23:27] VITALS: BP 134/92
[2023-08-09 07:04] LABS: Glucose - Point of Care 187 mg/dl (70-99)
[2023-08-09 07:20] VITALS: BP 137/85
--- NOTE | 2023-08-09 08:06 | PN.DE.MGMTRT ---
Insulin Management
- -
08/09/2023: Diabetes Management f/u:
Patient admitted with aphasia and possible balance issues for more than 24 hours superimposed on cognitive impairment/difficulty with driving for at least 2 weeks. Brain MRI/MRA showed Acute to subacute nonhemorrhagic infarct and Multiple chronic
infarcts.
Pt awake, alert, oriented, offers no complaint, sitting up in bed, able to discuss diabetes mgt. State he has never seen a doctor before.
Glucose on admission was 323, A1C 9.8%, New diagnosis Type 2 diabetes. Cr 0.9, eGFR>60. Also, new diagnosis HTN.
Glucose yesterday trended 123 to 153. Fasting glucose this AM 187 POC. Lantus stopped 08/06.
Continue glipizide 5 mg BID and Metformin 1000 mg BID.
Monitor instructions were reinforced by CHASITY Tse.
Pt not an ideal candidate for insulin. When attempting to teach pt insulin pen use he could not follow the steps for insulin prep and injection technique.
Cont oral regimen at discharge: Glipizide 5 mg BID and Metformin 1000 mg BID.
Diabetes History
- -
Type of Diabetes: 2
Pre-Admission Diabetes Regimen
Lab Results
Hemoglobin A1c 9.8 % (4.0-5.6) H 08/04/23 05:49
Insulin Pump Settings
IP Diabetes Regimen
08/08/23 08/08/23 08/08/23
12:14 17:00 21:17
POC Glucose 166 H 204 H 138 H
08/09/23
07:02
POC Glucose 187 H
Meal type: Breakfast
Amount consumed: 100%
Patient Education
[2023-08-09] MEDS: ZESTRIL 5 MG PO (08:12)
[2023-08-09] MEDS: GLUCOPHAGE 1000 MG PO ×2 (08:12→16:53)
[2023-08-09] MEDS: GLUCOTROL 5 MG PO ×2 (08:12→16:53)
[2023-08-09] MEDS: LOW STRENGTH ASPIRIN 81 MG PO (08:13)
[2023-08-09] MEDS: PLAVIX 75 MG PO (08:13)
[2023-08-09] MEDS: NOVOLOG FLEXPEN-LOW RESISTANCE 1 UNITS SC (08:14)
[2023-08-09 08:54] VITALS: BP 123/89; PULSE 92
--- NOTE | 2023-08-09 09:03 | W.PN.HOSP.TC ---
Today's Communication/Plan
-
Continue present management
BP stabilized
Continue diabetic management with oral medications: Glipizide and metformin
Continue intense dose statin and aspirin and Plavix
Await disposition to moderate rehab once insurance issues are ironed out
If here by Saturday should repeat labs to update
Assessment / Plan
Assessment / Plan
CT HEAD 08/06/23
IMPRESSION:
No acute intracranial abnormality noted.
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
HEAD/NECK CTA 08/04/23
IMPRESSION:
1. No acute intracranial abnormality identified. Chronic right basal ganglia lacunar infarct and chronic right occipital infarct as seen prior.
2. Approximately 74% stenosis at the origin of the right internal carotid artery. Less than 50% stenosis of the extracranial left internal carotid artery. There is approximately 60% narrowing of the left common carotid artery.
3. Greater than 50% stenoses of both intracranial internal carotid arteries along cavernous segments. 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
4. Diffuse luminal irregularity of intracranial cerebral vascular distribution probably related to atherosclerosis. Focal stenoses right P2, right M1, left M2 as above.
MRI 08/04/23
IMPRESSION:
1. Acute to subacute nonhemorrhagic infarct in the eusebia to the left midline measuring 1.2 cm.
2. Multiple chronic infarcts.
3. Chronic senescent changes, as above.
NECK MRA 08/04/23
IMPRESSION:
Bilateral carotid bifurcation atherosclerosis causing 70% stenosis of the right carotid bulb and 30% stenosis of the left carotid bulb.
HEAD MRA 08/04/23
IMPRESSION:
1. No MRA evidence for vascular occlusion.
2. Multifocal intracranial stenoses, most significant at the cavernous segment of the right internal carotid artery considered moderate to high-grade. Mild to moderate stenoses elsewhere in the [place] within the limitations of motion
artifact, as detailed above.
Eusebia nonhemorrhagic infarct
Dysarthria
-appreciate neuro
-new start aspirin/plavix - continue DAPT x 3 months then aspirin monotherapy
-continue statin
-TTE normal EF without significant valve disease
-Asymptomatic right ICA stenosis noted and vascular recommendation of outpatient follow-up on it noted.
-worsening in deficits noted on 08/05 which per neuro is not uncommon for small vessel disease stroke; progression to reach maximum severity. repeat head CT without new event
-acute rehab eval /accepted and appropriate for [facility] pending insurance
-awaiting medicaid application for dispo decision making - patient not safe to go home
New diabetes mellitus type 2-
- hemoglobin A1c is 9.8
-appreciate DM COUTURE DRESSMAKER consult
-given difficulty comprehending insulin use- meds changed to metformin + glipizide
He is also in the process of getting an appointment with free clinic at [facility].
New diagnosis of HTN -Elevated BP on adx -probably a hypertensive pt. goal is normotension. Continue on lisinopril.
Tobacco use-advised to stop chewing tobacco as it is a significant risk factor for stroke and also cardiovascular disease.
Full code
Anticipated Discharge: 24 - 48 hours
Subjective/Interval History
-
Date of Service: August 09, 2023
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
Objective Data
-
Vital Signs:
Vital Signs
Temp Pulse Resp BP Pulse Ox
97.8 F 73 16 137/85 96
08/09/23 07:20 08/09/23 08:12 08/09/23 07:20 08/09/23 08:12 08/09/23 07:20
I&O
08/08/23 08/09/23 08/10/23
06:59 06:59 06:59
Intake Total 1140 / 1140 480 / 480
Balance 1140 / 1140 480 / 480
Review of Systems
-
History Source: Patient
Neuro: Reports No Symptoms and Other (Slurred speech)
Physical Exam
-
General: Well Developed
HEENT: Normocephalic
Respiratory: Clear to Auscultation
Cardiac: Regular Rhythm
GI: Soft and Nontender
Neuro: Awake, Alert, Oriented, AO x 3, No Motor Deficits and Slurred Speech
Psych: Calm
Data Reviewed
-
Total Time Spent with Patient (in minutes): 45
Labs: Labs Reviewed by me
[2023-08-09 11:38] LABS: Glucose - Point of Care 213 mg/dl (70-99)
[2023-08-09] MEDS: NOVOLOG FLEXPEN-LOW RESISTANCE SC (12:04)
[2023-08-09 12:23] VITALS: BP 151/98; BP 181/98; PULSE 78
[2023-08-09 15:26] VITALS: BP 116/83
--- NOTE | 2023-08-09 16:31 | CM ---
PT OT recommended acute rehab.
ANDERS Mukherjee said family is to provide financial information to apply for insurance coverage.
LM with Yaz to see status.
Spoke with Jared vicente [facility].
PLAN will depend of insurance process
[2023-08-09 16:44] LABS: Glucose - Point of Care 258 mg/dl (70-99)
[2023-08-09] MEDS: NOVOLOG FLEXPEN-LOW RESISTANCE 3 UNITS SC (16:52)
[2023-08-09] MEDS: LIPITOR 80 MG PO (17:01)
[2023-08-09 21:25] LABS: Glucose - Point of Care 214 mg/dl (70-99)
[2023-08-09 23:48] VITALS: BP 156/95
[2023-08-10 07:19] LABS: Glucose - Point of Care 191 mg/dl (70-99)
[2023-08-10 07:20] VITALS: BP 160/94
[2023-08-10] MEDS: GLUCOTROL 5 MG PO ×2 (08:14→17:24)
[2023-08-10] MEDS: ZESTRIL 5 MG PO (08:14)
[2023-08-10] MEDS: GLUCOPHAGE 1000 MG PO ×2 (08:14→17:24)
[2023-08-10] MEDS: PLAVIX 75 MG PO (08:14)
[2023-08-10] MEDS: NOVOLOG FLEXPEN-LOW RESISTANCE 1 UNITS SC (08:14)
[2023-08-10] MEDS: LOW STRENGTH ASPIRIN 81 MG PO (08:14)
[2023-08-10] MEDS: FLUSH (NSS) 1 FLUSH IV (08:15)
--- NOTE | 2023-08-10 08:50 | W.PN.HOSP.TC ---
Today's Communication/Plan
-
continue rehab while in house
continue DAPT/Statin, BP control
routine labs pending
DC planning to [facility] pending insurance/[facility]
Assessment / Plan
Assessment / Plan
CT HEAD 08/06/23
IMPRESSION:
No acute intracranial abnormality noted.
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
HEAD/NECK CTA 08/04/23
IMPRESSION:
1. No acute intracranial abnormality identified. Chronic right basal ganglia lacunar infarct and chronic right occipital infarct as seen prior.
2. Approximately 74% stenosis at the origin of the right internal carotid artery. Less than 50% stenosis of the extracranial left internal carotid artery. There is approximately 60% narrowing of the left common carotid artery.
3. Greater than 50% stenoses of both intracranial internal carotid arteries along cavernous segments. 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
4. Diffuse luminal irregularity of intracranial cerebral vascular distribution probably related to atherosclerosis. Focal stenoses right P2, right M1, left M2 as above.
MRI 08/04/23
IMPRESSION:
1. Acute to subacute nonhemorrhagic infarct in the [place] to the left midline measuring 1.2 cm.
2. Multiple chronic infarcts.
3. Chronic senescent changes, as above.
NECK MRA 08/04/23
IMPRESSION:
Bilateral carotid bifurcation atherosclerosis causing 70% stenosis of the right carotid bulb and 30% stenosis of the left carotid bulb.
HEAD MRA 08/04/23
IMPRESSION:
1. No MRA evidence for vascular occlusion.
2. Multifocal intracranial stenoses, most significant at the cavernous segment of the right internal carotid artery considered moderate to high-grade. Mild to moderate stenoses elsewhere in the [place] within the limitations of motion
artifact, as detailed above.
Assessment:
Eusebia nonhemorrhagic infarct
Dysarthria
-appreciate neuro
-new start aspirin/plavix - continue DAPT x 3 months then aspirin monotherapy
-continue statin
-TTE normal EF without significant valve disease
-Asymptomatic right ICA stenosis noted and vascular recommendation of outpatient follow-up on it noted.
-worsening in deficits noted on 08/05 which per neuro is not uncommon for small vessel disease stroke; progression to reach maximum severity. repeat head CT without new event
-acute rehab eval /accepted and appropriate for [facility] pending insurance
-awaiting medicaid application for dispo decision making - patient not safe to go home
-continue PT/OT/ST while in house
New diabetes mellitus type 2
-hemoglobin A1c is 9.8
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
-given difficulty comprehending insulin use- meds changed to metformin + glipizide
-He is also in the process of getting an appointment with free clinic at [facility].
New diagnosis of HTN
-Elevated BP on adx -probably a hypertensive pt. goal is normotension. Continue on lisinopril, titrate dose for normotension goal
Tobacco use-advised to stop chewing tobacco as it is a significant risk factor for stroke and also cardiovascular disease.
Full code
Anticipated Discharge: > 48 hours
Subjective/Interval History
-
Date of Service: August 10, 2023
no new complaints
seems to better with speech today
Objective Data
-
Labs:
Laboratory Results
08/10/23
08:24
WBC Pending
Hgb Pending
Hct Pending
Plt Count Pending
Sodium Pending
Potassium Pending
Chloride Pending
Carbon Dioxide Pending
BUN Pending
Creatinine Pending
Glucose Pending
Calcium Pending
Vital Signs:
Vital Signs
Temp Pulse Resp BP Pulse Ox
97.9 F 78 18 160/94 94
08/10/23 07:20 08/10/23 08:14 08/10/23 07:20 08/10/23 08:14 06/22/24 07:20
I&O
08/09/23 08/10/23 08/11/23
06:59 06:59 06:59
Intake Total 480 / 480
Balance 480 / 480
Physical Exam
-
General: No Apparent Distress
HEENT: Normocephalic and Atraumatic
Respiratory: Negative Wheezes
Cardiac: Regular Rhythm and S1/S2
GI: Soft and Nontender
Neuro: AO x 3
Psych: Calm
Data Reviewed
-
Total Time Spent with Patient (in minutes): 41
Labs: Labs Reviewed by me
[2023-08-10 09:34] LABS: Blood Urea Nitrogen 46 mg/dl (9-20); Calcium 9.9 mg/dl (8.4-10.2); Carbon Dioxide 21 mmol/L (22-30); Chloride 98 mmol/L (98-107); Estimated Creatinine Clearance 80 ml/min; Glucose 237 mg/dl (70-99); Potassium 4.2 mmol/L (3.5-5.1); Sodium 133 mmol/L (135-145); eGFR > 60.00
[2023-08-10 10:02] LABS: Hematocrit 50.2 % (39.0-52.0); Hemoglobin 18.6 g/dL (13.0-18.0); Mean Corp Hgb Conc. 37.1 g/dL (33.0-37.0); Mean Corpuscular Hgb 30.3 pg (27.0-31.0); Mean Corpuscular Volume 81.9 fL (80.0-94.0); Mean Platelet Volume 9.5 fL (7.4-10.4); Platelet Count 357 10^3/uL (130-400); Red Blood Cell Count 6.13 10^6/uL (4.70-6.10); Red Cell Dist. Width 12.8 % (11.5-14.5); White Blood Cell Count 13.6 10^3/uL (4.8-10.8)
[2023-08-10 11:15] VITALS: BP 168/93; PULSE 79; O2SAT 96
[2023-08-10 11:58] LABS: Glucose - Point of Care 247 mg/dl (70-99)
[2023-08-10] MEDS: NSS 1000 IV (12:15)
[2023-08-10] MEDS: NOVOLOG FLEXPEN-LOW RESISTANCE 2 UNITS SC ×2 (12:16→17:24)
[2023-08-10 12:17] VITALS: BP 155/92
--- NOTE | 2023-08-10 12:18 | CM ---
Hugh was seen by PT today with continued recommendation for Acute Rehab at discharge.
HRSI Yaz said family is to provide financial information to apply for insurance coverage which will be required prior to transfer to Acute Rehab.
CM to follow up on Saturday to check status of financial information submission to enable insurance application.
Plan: Transfer to [facility] pending financial information review. CM to follow up on 08/11/2023, with [facility] for update on Medical Assistance application.
[2023-08-10 14:27] LABS: Urine Albumin 1+ (Neg - Trace); Urine Bilirubin Negative (Negative); Urine Character Clear (Clear); Urine Color Yellow; Urine Glucose 1+ (Negative); Urine Ketone 1+ (Negative); Urine Leukocyte Negative (Negative); Urine Nitrite Negative (Negative); Urine Occult Blood Negative (Negative); Urine Urobilinogen Negative (Neg - 1+)
[2023-08-10 15:13] LABS: Urine Mucus Many
[2023-08-10 15:15] VITALS: BP 156/93
[2023-08-10 15:17] LABS: Urine Bacteria Moderate (Negative); Urine Red Blood Cell 0-2 /HPF (0-2); Urine White Cell 0-2 /HPF (0-5)
[2023-08-10 16:47] LABS: Glucose - Point of Care 233 mg/dl (70-99)
[2023-08-10] MEDS: LIPITOR 80 MG PO (17:24)
[2023-08-10 21:10] LABS: Glucose - Point of Care 216 mg/dl (70-99)
[2023-08-10 23:27] VITALS: BP 169/87
[2023-08-11] MEDS: NSS 1000 IV (01:13)
[2023-08-11 04:54] VITALS: BP 130/86
[2023-08-11 07:10] LABS: Glucose - Point of Care 178 mg/dl (70-99)
[2023-08-11 07:53] VITALS: BP 159/90
[2023-08-11] MEDS: GLUCOPHAGE 1000 MG PO ×2 (09:01→17:01)
[2023-08-11] MEDS: NOVOLOG FLEXPEN-LOW RESISTANCE 1 UNITS SC ×2 (09:01→12:31)
[2023-08-11] MEDS: GLUCOTROL 5 MG PO ×2 (09:01→17:06)
[2023-08-11] MEDS: ZESTRIL 5 MG PO ×2 (09:01→10:47)
[2023-08-11] MEDS: LOW STRENGTH ASPIRIN PO (09:02)
[2023-08-11] MEDS: PLAVIX 75 MG PO (09:02)
[2023-08-11 09:12] LABS: Hematocrit 44.6 % (39.0-52.0); Hemoglobin 16.3 g/dL (13.0-18.0); Mean Corp Hgb Conc. 36.5 g/dL (33.0-37.0); Mean Corpuscular Hgb 30.5 pg (27.0-31.0); Mean Corpuscular Volume 83.4 fL (80.0-94.0); Mean Platelet Volume 8.7 fL (7.4-10.4); Platelet Count 267 10^3/uL (130-400); Red Blood Cell Count 5.35 10^6/uL (4.70-6.10); Red Cell Dist. Width 12.3 % (11.5-14.5); White Blood Cell Count 15.3 10^3/uL (4.8-10.8)
[2023-08-11 09:25] LABS: Blood Urea Nitrogen 31 mg/dl (9-20); Calcium 9.2 mg/dl (8.4-10.2); Carbon Dioxide 20 mmol/L (22-30); Chloride 103 mmol/L (98-107); Estimated Creatinine Clearance 114 ml/min; Glucose 184 mg/dl (70-99); Potassium 4.1 mmol/L (3.5-5.1); Sodium 133 mmol/L (135-145); eGFR > 60.00
[2023-08-11] MEDS: LOW STRENGTH ASPIRIN 81 MG PO (09:35)
--- NOTE | 2023-08-11 09:51 | W.PN.HOSP.TC ---
Today's Communication/Plan
-
cap IVF
up-titrate Lisinopril to 10mg daily
Assessment / Plan
Assessment / Plan
CT HEAD 08/06/23
IMPRESSION:
No acute intracranial abnormality noted.
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
HEAD/NECK CTA 08/04/23
IMPRESSION:
1. No acute intracranial abnormality identified. Chronic right basal ganglia lacunar infarct and chronic right occipital infarct as seen prior.
2. Approximately 74% stenosis at the origin of the right internal carotid artery. Less than 50% stenosis of the extracranial left internal carotid artery. There is approximately 60% narrowing of the left common carotid artery.
3. Greater than 50% stenoses of both intracranial internal carotid arteries along cavernous segments. 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
4. Diffuse luminal irregularity of intracranial cerebral vascular distribution probably related to atherosclerosis. Focal stenoses right P2, right M1, left M2 as above.
MRI 08/04/23
IMPRESSION:
1. Acute to subacute nonhemorrhagic infarct in the [place] to the left midline measuring 1.2 cm.
2. Multiple chronic infarcts.
3. Chronic senescent changes, as above.
NECK MRA 08/04/23
IMPRESSION:
Bilateral carotid bifurcation atherosclerosis causing 70% stenosis of the right carotid bulb and 30% stenosis of the left carotid bulb.
HEAD MRA 08/04/23
IMPRESSION:
1. No MRA evidence for vascular occlusion.
2. Multifocal intracranial stenoses, most significant at the cavernous segment of the right internal carotid artery considered moderate to high-grade. Mild to moderate stenoses elsewhere in the [place] within the limitations of motion
artifact, as detailed above.
Assessment:
Eusebia nonhemorrhagic infarct
Dysarthria
-appreciate neuro
-new start aspirin/plavix - continue DAPT x 3 months then aspirin monotherapy
-continue statin
-TTE normal EF without significant valve disease
-Asymptomatic right ICA stenosis noted and vascular recommendation of outpatient follow-up on it noted.
-worsening in deficits noted on 08/05 which per neuro is not uncommon for small vessel disease stroke; progression to reach maximum severity. repeat head CT without new event
-acute rehab eval /accepted and appropriate for [facility] pending insurance
-awaiting medicaid application for dispo decision making - patient not safe to go home
-continue PT/OT/ST while in house
New diabetes mellitus type 2
-hemoglobin A1c is 9.8
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
-given difficulty comprehending insulin use- meds changed to metformin + glipizide
-He is also in the process of getting an appointment with free clinic at [facility].
New diagnosis of HTN
-Increase Lisinopril to 10mg daily
Tobacco use-advised to stop chewing tobacco as it is a significant risk factor for stroke and also cardiovascular disease.
Leukocytosis
- unclear etiology, asymptomatic, no fevers
- urine culture negative
- check CXR
- if febrile, obtain 2 sets Blood cultures
Full code
Anticipated Discharge: 24 - 48 hours
Subjective/Interval History
-
Date of Service: August 11, 2023
no new complaints presently
no fever/chills
no SOB/Cough/chest pain
no abdominal symptoms
no skin symptoms, no rashes, no pain elsewhere
WBC 15
Objective Data
-
Labs:
Laboratory Results
08/11/23
08:58
WBC 15.3 H
Hgb 16.3
Hct 44.6
Plt Count 267 D
Sodium 133 L
Potassium 4.1
Chloride 103
Carbon Dioxide 20 L
BUN 31 H
Creatinine 0.7
Glucose 184 H
Calcium 9.2
Vital Signs:
Vital Signs
Temp Pulse Resp BP Pulse Ox
97.9 F 82 16 159/90 98
08/11/23 07:53 08/11/23 09:01 08/11/23 07:53 08/11/23 09:01 08/11/23 07:53
I&O
08/10/23 08/11/23 08/12/23
06:59 06:59 06:59
Intake Total 1050 / 1050
Balance 1050 / 1050
Physical Exam
-
General: No Apparent Distress
HEENT: Normocephalic and Atraumatic
Respiratory: Negative Wheezes
Cardiac: Regular Rhythm and S1/S2
GI: Soft and Nontender
Musculoskeletal: No Edema
Neuro: AO x 3
Hematologic / Lymphatic: No Lymphadenopathy
Psych: Calm
Data Reviewed
-
Total Time Spent with Patient (in minutes): 42
Labs: Labs Reviewed by me
[2023-08-11 11:30] LABS: Glucose - Point of Care 171 mg/dl (70-99)
[2023-08-11 13:30] VITALS: BP 146/85
[2023-08-11 15:19] VITALS: BP 122/84
[2023-08-11 16:38] LABS: Glucose - Point of Care 141 mg/dl (70-99)
[2023-08-11] MEDS: NOVOLOG FLEXPEN-LOW RESISTANCE SC (17:01)
[2023-08-11] MEDS: LIPITOR 80 MG PO (17:01)
[2023-08-11] MEDS: PROTONIX 20 MG PO (17:02)
[2023-08-11] MEDS: GLUCOTROL PO (17:02)
[2023-08-11 21:07] LABS: Glucose - Point of Care 109 mg/dl (70-99)
[2023-08-11] MEDS: MELATONIN 3 MG PO (23:24)
[2023-08-11 23:25] VITALS: BP 150/86
[2023-08-12 07:20] VITALS: BP 140/80
[2023-08-12 07:31] LABS: Hematocrit 41.7 % (39.0-52.0); Hemoglobin 15.2 g/dL (13.0-18.0); Mean Corp Hgb Conc. 36.5 g/dL (33.0-37.0); Mean Corpuscular Hgb 30.2 pg (27.0-31.0); Mean Corpuscular Volume 82.7 fL (80.0-94.0); Mean Platelet Volume 8.8 fL (7.4-10.4); Platelet Count 288 10^3/uL (130-400); Red Blood Cell Count 5.04 10^6/uL (4.70-6.10); Red Cell Dist. Width 12.5 % (11.5-14.5)
[2023-08-12 07:40] LABS: Glucose - Point of Care 137 mg/dl (70-99)
--- NOTE | 2023-08-12 07:48 | PN.DE.MGMTRT ---
Insulin Management
- -
08/12/2023: Diabetes Management f/u:
Patient admitted with aphasia and possible balance issues for more than 24 hours superimposed on cognitive impairment/difficulty with driving for at least 2 weeks. Brain MRI/MRA showed Acute to subacute nonhemorrhagic infarct and Multiple chronic
infarcts.
Pt awake, alert, oriented, offers no complaint, sitting up in bed, able to discuss diabetes mgt. States he has never seen a doctor before.
Glucose on admission was 323, A1C 9.8%, New diagnosis Type 2 diabetes. Cr 0.9, eGFR>60. Also, new diagnosis HTN.
Lantus stopped 08/06 due to difficulties understanding insulin use and set up, was started on oral regimen.
Glucose remains stable and in range. Premeal 137 to 171. Fasting glucose this AM 132.
Cont oral regimen at discharge: Glipizide 5 mg BID and Metformin 1000 mg BID.
Monitor instructions were provided on 08/04 and reinforced on 08/05.
Pt not an ideal candidate for insulin at this time. When attempting to teach pt insulin pen use he could not follow the steps for insulin prep and injection technique.
Diabetes History
- -
Type of Diabetes: 2
Pre-Admission Diabetes Regimen
08/11/23
08:58
Creatinine 0.7
Lab Results
Hemoglobin A1c 9.8 % (4.0-5.6) H 08/04/23 05:49
Insulin Pump Settings
IP Diabetes Regimen
08/11/23 08/11/23 08/11/23
08:58 11:28 16:36
Glucose 184 H
POC Glucose 171 H 141 H
08/11/23 08/12/23
21:05 07:38
Glucose
POC Glucose 109 H 137 H
Meal type: Dinner
Meal type: Lunch
Meal type: Breakfast
Amount consumed: 5%
Amount consumed: 0
Amount consumed: 25%
Patient Education
[2023-08-12 08:10] LABS: Blood Urea Nitrogen 25 mg/dl (9-20); Calcium 9.2 mg/dl (8.4-10.2); Carbon Dioxide 20 mmol/L (22-30); Chloride 100 mmol/L (98-107); Estimated Creatinine Clearance 114 ml/min; Glucose 132 mg/dl (70-99); Potassium 3.8 mmol/L (3.5-5.1); Sodium 132 mmol/L (135-145); eGFR > 60.00
--- NOTE | 2023-08-12 08:26 | W.PN.HOSP.TC ---
Today's Communication/Plan
-
medically stable for DC to [facility] pending insurance/bed process. CM aware.
Assessment / Plan
Assessment / Plan
CT HEAD 08/06/23
IMPRESSION:
No acute intracranial abnormality noted.
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
HEAD/NECK CTA 08/04/23
IMPRESSION:
1. No acute intracranial abnormality identified. Chronic right basal ganglia lacunar infarct and chronic right occipital infarct as seen prior.
2. Approximately 74% stenosis at the origin of the right internal carotid artery. Less than 50% stenosis of the extracranial left internal carotid artery. There is approximately 60% narrowing of the left common carotid artery.
3. Greater than 50% stenoses of both intracranial internal carotid arteries along cavernous segments. 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
4. Diffuse luminal irregularity of intracranial cerebral vascular distribution probably related to atherosclerosis. Focal stenoses right P2, right M1, left M2 as above.
MRI 08/04/23
IMPRESSION:
1. Acute to subacute nonhemorrhagic infarct in the [place] to the left midline measuring 1.2 cm.
2. Multiple chronic infarcts.
3. Chronic senescent changes, as above.
NECK MRA 08/04/23
IMPRESSION:
Bilateral carotid bifurcation atherosclerosis causing 70% stenosis of the right carotid bulb and 30% stenosis of the left carotid bulb.
HEAD MRA 08/04/23
IMPRESSION:
1. No MRA evidence for vascular occlusion.
2. Multifocal intracranial stenoses, most significant at the cavernous segment of the right internal carotid artery considered moderate to high-grade. Mild to moderate stenoses elsewhere in the [place] within the limitations of motion
artifact, as detailed above.
Assessment:
Eusebia nonhemorrhagic infarct
Dysarthria
-appreciate neuro
-continue aspirin/plavix - continue DAPT x 3 months then aspirin monotherapy
-continue statin
-TTE normal EF without significant valve disease
-Asymptomatic right ICA stenosis noted and vascular recommendation of outpatient follow-up on it noted.
-worsening in deficits noted on 08/05 which per neuro is not uncommon for small vessel disease stroke; progression to reach maximum severity. repeat head CT without new event
-acute rehab eval /accepted and appropriate for [facility] pending insurance
-awaiting medicaid application for dispo decision making - patient not safe to go home
-continue PT/OT/ST while in house
New diabetes mellitus type 2
-hemoglobin A1c is 9.8
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
-given difficulty comprehending insulin use- meds changed to metformin + glipizide
-He is also in the process of getting an appointment with free clinic at [facility].
New diagnosis of HTN
-continue Lisinopril 10mg daily
Tobacco use-advised to stop chewing tobacco as it is a significant risk factor for stroke and also cardiovascular disease.
Leukocytosis
- unclear etiology, asymptomatic, no fevers
- urine culture negative
- CXR clear
- if febrile, obtain 2 sets Blood cultures
Full code
Anticipated Discharge: 24 - 48 hours
Subjective/Interval History
-
Date of Service: August 12, 2023
no new complaints
Objective Data
-
Labs:
Laboratory Results
08/12/23
06:35
WBC 13.0 H
Hgb 15.2
Hct 41.7
Plt Count 288
Sodium 132 L
Potassium 3.8
Chloride 100
Carbon Dioxide 20 L
BUN 25 H
Creatinine 0.7
Glucose 132 H
Calcium 9.2
Vital Signs:
Vital Signs
Temp Pulse Resp BP Pulse Ox
97.9 F 80 18 140/80 95
08/12/23 07:20 08/12/23 07:20 08/12/23 07:20 08/12/23 07:20 08/12/23 07:20
I&O
08/11/23 08/12/23 08/13/23
06:59 06:59 06:59
Intake Total 1050 / 1050 870 / 870
Balance 1050 / 1050 870 / 870
Physical Exam
-
General: No Apparent Distress
HEENT: Normocephalic and Atraumatic
Respiratory: Negative Wheezes
Cardiac: Regular Rhythm and S1/S2
GI: Soft
Musculoskeletal: No Edema
Neuro: AO x 3
Hematologic / Lymphatic: No Lymphadenopathy
Psych: Calm
Data Reviewed
-
Total Time Spent with Patient (in minutes): 42
Labs: Labs Reviewed by me
[2023-08-12] MEDS: GLUCOPHAGE 1000 MG PO ×2 (08:44→17:35)
[2023-08-12] MEDS: NOVOLOG FLEXPEN-LOW RESISTANCE SC ×3 (08:44→16:50)
[2023-08-12] MEDS: PLAVIX 75 MG PO (08:45)
[2023-08-12] MEDS: LOW STRENGTH ASPIRIN 81 MG PO (08:45)
[2023-08-12] MEDS: ZESTRIL 10 MG PO (08:45)
[2023-08-12] MEDS: GLUCOTROL 5 MG PO ×2 (08:45→17:35)
[2023-08-12] MEDS: PROTONIX 20 MG PO (08:45)
[2023-08-12] MEDS: FLUSH (NSS) 1 FLUSH IV (08:46)
--- NOTE | 2023-08-12 10:07 | PN.CDI ---
CDI
- -
CDI:
Physician Documentation Request
Admit Date: 08/03/23 11:56
Dear Doctor Caro ,
Please review the following and provide your response in the progress notes.
Clinical Indicators:
Pt admitted with Eusebia nonhemorrhagic infarct
Sodium levels are as below/Pt did get IVFs
08/03/23 08/10/23 08/11/23
09:30 09:01 08:58
Sodium 134 L 133 L 133 L
08/12/23
06:35
Sodium 132 L
Based on the above, could you clarify in the progress notes, the appropriate diagnosis, if significant, that supports the above abnormalities and additional evaluation, monitoring and/or treatment rendered:
Hyponatremia
Abnormal lab value of clinical insignificance
Other
Use of terms such as suspected, likely, concern for, or probable (associated with a specific diagnosis that is being evaluated, monitored, or treated as if it exists) are acceptable and can be coded in the inpatient setting, when documented at the
time of discharge.
Thank you,
Tara Jacob RN
CDI Specialist
Thayne Text
Please use your independent medical judgment in providing your response.
[2023-08-12 10:38] VITALS: BP 130/76; PULSE 80
[2023-08-12 12:49] LABS: Glucose - Point of Care 109 mg/dl (70-99)
[2023-08-12 15:23] VITALS: BP 158/83
[2023-08-12 16:37] LABS: Glucose - Point of Care 116 mg/dl (70-99)
--- NOTE | 2023-08-12 17:15 | CM ---
PT eval improved today with continued recommendation for Acute Rehab at discharge.
[facility] can not accept pt as per Ana María Chan [facility]SI Yaz said family provided financial information and was to be submitted today.
Spoke with Lenny his dgt [phone]. She said that [place] is an hour away . She would like referral to [facility].
Referral placed . [facility] acute rehab x2. Ros[facility] called back to say how was [facility]SI process going . Yaz [facility] number given to her.
Will need to have [facility] from and [facility] check on status.
PLAN To [facility] acute rehab VS Home
[2023-08-12] MEDS: LIPITOR 80 MG PO (17:35)
[2023-08-12 21:19] LABS: Glucose - Point of Care 79 mg/dl (70-99)
[2023-08-12] MEDS: MELATONIN 3 MG PO (21:45)
[2023-08-12 23:43] VITALS: BP 119/62
[2023-08-13 07:18] LABS: Glucose - Point of Care 146 mg/dl (70-99)
--- NOTE | 2023-08-13 07:22 | W.PN.HOSP.TC ---
Today's Communication/Plan
-
medically stable for DC to acute rehab pending insurance/bed process. CM aware.
Assessment / Plan
Assessment / Plan
CT HEAD 08/06/23
IMPRESSION:
No acute intracranial abnormality noted.
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
HEAD/NECK CTA 08/04/23
IMPRESSION:
1. No acute intracranial abnormality identified. Chronic right basal ganglia lacunar infarct and chronic right occipital infarct as seen prior.
2. Approximately 74% stenosis at the origin of the right internal carotid artery. Less than 50% stenosis of the extracranial left internal carotid artery. There is approximately 60% narrowing of the left common carotid artery.
3. Greater than 50% stenoses of both intracranial internal carotid arteries along cavernous segments. 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
4. Diffuse luminal irregularity of intracranial cerebral vascular distribution probably related to atherosclerosis. Focal stenoses right P2, right M1, left M2 as above.
MRI 08/04/23
IMPRESSION:
1. Acute to subacute nonhemorrhagic infarct in the eusebia to the left midline measuring 1.2 cm.
2. Multiple chronic infarcts.
3. Chronic senescent changes, as above.
NECK MRA 08/04/23
IMPRESSION:
Bilateral carotid bifurcation atherosclerosis causing 70% stenosis of the right carotid bulb and 30% stenosis of the left carotid bulb.
HEAD MRA 08/04/23
IMPRESSION:
1. No MRA evidence for vascular occlusion.
2. Multifocal intracranial stenoses, most significant at the cavernous segment of the right internal carotid artery considered moderate to high-grade. Mild to moderate stenoses elsewhere in the [place] within the limitations of motion
artifact, as detailed above.
Assessment:
Eusebia nonhemorrhagic infarct
Dysarthria
-appreciate neuro
-continue aspirin/plavix - continue DAPT x 3 months then aspirin monotherapy
-continue statin
-TTE normal EF without significant valve disease
-Asymptomatic right ICA stenosis noted and vascular recommendation of outpatient follow-up on it noted.
-worsening in deficits noted on 08/05 which per neuro is not uncommon for small vessel disease stroke; progression to reach maximum severity. repeat head CT without new event
-acute rehab eval /accepted and appropriate for [facility] pending insurance
-awaiting medicaid application for dispo decision making - patient not safe to go home
-continue PT/OT/ST while in house
New diabetes mellitus type 2
-hemoglobin A1c is 9.8
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
-given difficulty comprehending insulin use- meds changed to metformin + glipizide
-He is also in the process of getting an appointment with free clinic at [facility].
New diagnosis of HTN
-continue Lisinopril 10mg daily
Tobacco use-advised to stop chewing tobacco as it is a significant risk factor for stroke and also cardiovascular disease.
Leukocytosis
- unclear etiology, asymptomatic, no fevers
- urine culture negative
- CXR clear
- if febrile, obtain 2 sets Blood cultures
Hyponatremia
Full code
Dispo: pending acute rehab placement if qualifies. Denied at [facility], family wants to pursue [facility]. CM aware.
Anticipated Discharge: 24 - 48 hours
Subjective/Interval History
-
Date of Service: August 13, 2023
no new complaints
Objective Data
-
Vital Signs:
Vital Signs
Temp Pulse Resp BP Pulse Ox
99.6 F 78 20 119/62 94
08/12/23 23:43 08/12/23 23:43 08/12/23 23:43 08/12/23 23:43 08/12/23 23:43
I&O
08/12/23 08/13/23 08/14/23
06:59 06:59 06:59
Intake Total 870 / 870 1200 / 1200
Balance 870 / 870 1200 / 1200
Physical Exam
-
General: No Apparent Distress
HEENT: Normocephalic and Atraumatic
Respiratory: Negative Wheezes
Cardiac: Regular Rhythm and S1/S2
GI: Soft
Musculoskeletal: No Edema
Neuro: AO x 3
Hematologic / Lymphatic: No Lymphadenopathy
Psych: Calm
Data Reviewed
-
Total Time Spent with Patient (in minutes): 44
Labs: Labs Reviewed by me
[2023-08-13] MEDS: NOVOLOG FLEXPEN-LOW RESISTANCE SC ×3 (07:33→16:59)
--- NOTE | 2023-08-13 07:49 | PN.DE.MGMTRT ---
Insulin Management
- -
08/13/2023: Diabetes Management Follow up
Patient admitted with aphasia and possible balance issues for more than 24 hours superimposed on cognitive impairment/difficulty with driving for at least 2 weeks. Brain MRI/MRA showed Acute to subacute nonhemorrhagic infarct and Multiple chronic
infarcts.
Pt awake, alert, oriented, offers no complaint, sitting up in bed, able to discuss diabetes mgt. States he has never seen a doctor before.
Glucose on admission was 323, A1C 9.8%, New diagnosis Type 2 diabetes. Cr 0.9, eGFR>60. Also, new diagnosis HTN.
Lantus stopped 08/06 due to difficulties understanding insulin use and set up, was started on oral regimen.
Glucose remains stable and in range. Premeal 109 to 137. Fasting glucose this AM 146.
Will make no change to oral regimen at discharge: Glipizide 5 mg BID and Metformin 1000 mg BID.
Monitor instructions were provided on 08/04 and reinforced on 08/05.
Will follow.
Diabetes History
- -
Type of Diabetes: 2
Pre-Admission Diabetes Regimen
08/12/23
06:35
Creatinine 0.7
Lab Results
Hemoglobin A1c 9.8 % (4.0-5.6) H 08/04/23 05:49
Insulin Pump Settings
IP Diabetes Regimen
08/12/23 08/12/23 08/12/23
06:35 12:48 16:36
Glucose 132 H
POC Glucose 109 H 116 H
08/12/23 08/13/23
21:12 07:17
Glucose
POC Glucose 79 146 H
Meal type: Dinner
Meal type: Lunch
Meal type: Breakfast
Amount consumed: 60%
Amount consumed: 80%
Amount consumed: 75%
Patient Education
[2023-08-13 07:55] VITALS: BP 136/88
[2023-08-13] MEDS: PLAVIX 75 MG PO (08:40)
[2023-08-13] MEDS: GLUCOTROL 5 MG PO ×2 (08:40→16:59)
[2023-08-13] MEDS: LOW STRENGTH ASPIRIN 81 MG PO (08:40)
[2023-08-13] MEDS: PROTONIX 20 MG PO (08:40)
[2023-08-13] MEDS: ZESTRIL 10 MG PO (08:40)
[2023-08-13] MEDS: GLUCOPHAGE 1000 MG PO ×2 (08:40→16:59)
--- NOTE | 2023-08-13 11:53 | CM ---
Addendum entered by Alley White RN 08/13/23 15:07:
Also gave [facility] info in case [facility] could not accept.
PT saw pt and gave him exercises to continue at home.
Original Note:
MD entered order for discharge.
Spoke Eryn daughter [phone] explained that [facility] and [facility] re[facility] have denied.
Spoke with [facility] pt can not be accepted if he does not have insurance .
Yaz MCNAMARA said application for Medicaid has been submitted. Process could take 45 days.
Above explained to daughter Eryn . She said she can get pt a walker.
She said she will pick him up by 5 pm today.
Called [facility] they said pt could make appt at [facility] [phone] . Information left with pt.
PLAN Home with family support
[2023-08-13 12:12] LABS: Glucose - Point of Care 98 mg/dl (70-99)
--- NOTE | 2023-08-13 13:28 | W.DS.TRANS ---
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
-
Discharge Instructions:
Discharge Diagnosis/Procedures Acute pontine stroke, new diagnosis of diabetes
mellitus, new diagnosis of hypertension
Diet Diabetic, Carb Controlled,Low Cholesterol
Activity As tolerated
Driving Restrictions Not until seen by your Dr
Instructions:
Stand-Alone Forms:
Changes to Home Medications: No
Discharge Medications:
DC Medications w/original date entered in [facility]
[id number] tablet (Multivitamin 50 Plus tablet) 1 tab PO DAILY Supplement 08/03/23
metformin 1,000 mg tablet 1,000 mg PO BID #60 tabs 08/06/23
aspirin 81 mg chewable tablet 81 mg PO DAILY #100 tabs 08/13/23
atorvastatin 80 mg tablet 80 mg PO QPM #90 tabs 08/13/23
clopidogrel 75 mg tablet 75 mg PO DAILY #90 tabs 08/13/23
glipizide 5 mg tablet 5 mg PO BID@0800,1700 #180 tabs 08/13/23
lisinopril 10 mg tablet 10 mg PO DAILY #90 tabs 08/13/23
metformin 1,000 mg tablet 1,000 mg PO BID@0800,1700 #360 tabs 08/13/23
Home Medication Changes
Pending Results: No
Total time spent discharging patient (in min): 41
[2023-08-13 15:28] VITALS: BP 106/67
[2023-08-13] MEDS: LIPITOR 80 MG PO (16:59)
== END 2023-08-13 17:31 | disposition home or self-care (01) | DRG 65 ==
LOC: 4 EAST ACU 11:56
PROVIDERS: Student in an Organized Health Care Education/Training Program; ADMITTING PHYSICIAN Internal Medicine; ATTENDING PHYSICIAN Internal Medicine; CONSULT PHYSICIAN Psychiatry & Neurology Neurology; EMERGENCY PHYSICIAN Emergency Medicine; OTHER PHYSICIAN Physical Medicine & Rehabilitation; OTHER PHYSICIAN Surgery Vascular Surgery
DX: I63.233 Cerebral infarction due to unspecified occlusion or stenosis of bilateral carotid arteries (principal); E87.1 Hypo-osmolality and hyponatremia; G81.91 Hemiplegia, unspecified affecting right dominant side; E11.9 Type 2 diabetes mellitus without complications; I10 Essential (primary) hypertension; R47.01 Aphasia; R47.1 Dysarthria and anarthria; R13.10 Dysphagia, unspecified; E78.5 Hyperlipidemia, unspecified; F17.220 Nicotine dependence, chewing tobacco, uncomplicated; D72.829 Elevated white blood cell count, unspecified; Z86.73 Personal history of transient ischemic attack (TIA), and cerebral infarction without residual deficits
CPT/HCPCS: 70450; 70496; 70498; 70544; 70548; 70551; 71046; 74230; 80048; 80053; 80061; 81003; 81015; 82962; 83036; 85025; 85027; 85610; 85730; 87086; 87811; 92523; 92526; 92610; 92611; 93005; 93306; 93880; 97112; 97116; 97129; 97161; 97164; 97166; 97530; 97535; 99285; A9585; Q9967

== ENCOUNTER 2023-11-19 06:26 | Inpatient (IN) | payer OTHER, SELFPAY ==
[2023-11-07 10:14] VITALS: BMI 31.6
[2023-11-07 10:39] LABS: % Basophils 0.6 % (0-2); % Immature Granulocytes 0.3 % (0-0.5); % Neutrophils 69.1 % (42.2-75.2); Absolute Basophils 0.1 10^3/uL (0-0.2); Absolute Eosinophils 0.2 10^3/uL (0-0.7); Absolute Lymphocytes 2.1 10^3/uL (1.2-3.4); Absolute Monocytes 0.5 10^3/uL (0.1-0.6); Absolute Neutrophils 6.2 10^3/uL (1.4-6.5); Hematocrit 45.6 % (39.0-52.0); Hemoglobin 16.1 g/dL (13.0-18.0); Mean Corp Hgb Conc. 35.3 g/dL (33.0-37.0); Mean Corpuscular Hgb 28.9 pg (27.0-31.0); Mean Corpuscular Volume 81.7 fL (80.0-94.0); Mean Platelet Volume 8.5 fL (7.4-10.4); Nucleated Red Blood Cells % 0 % (-); Platelet Count 237 10^3/uL (130-400); Red Blood Cell Count 5.58 10^6/uL (4.70-6.10); Red Cell Dist. Width 12.2 % (11.5-14.5); White Blood Cell Count 8.9 10^3/uL (4.8-10.8)
[2023-11-07 10:47] LABS: INR 0.96; PT 12.8 Sec (11.4-14.6)
[2023-11-07 10:48] LABS: APTT 27.1 Sec (23.4-35.0)
[2023-11-07 11:04] LABS: Blood Urea Nitrogen 15 mg/dl (9-20); Calcium 10.1 mg/dl (8.4-10.2); Carbon Dioxide 21 mmol/L (22-30); Chloride 102 mmol/L (98-107); Estimated Creatinine Clearance 97 ml/min; Glucose 170 mg/dl (70-99); Potassium 4.2 mmol/L (3.5-5.1); Sodium 140 mmol/L (135-145); eGFR > 60.00
[2023-11-19] VITALS (16 sets, daily range): BP systolic 103–169; BP diastolic 78–105; BMI 31.0
[2023-11-19] MEDS: PERIDEX 0.12% ORAL RINSE 15 ML PO (07:07)
[2023-11-19] MEDS: BACTROBAN NASAL 1 GRAM NASAL (07:08)
--- NOTE | 2023-11-19 07:18 | W.SUR.PREOP ---
Pre-Operative Surgical Note
-
I have examined this patient prior to the performance of the scheduled procedure.
The patient's condition is unchanged from the time of the current History and
Physical and the patient is able to undergo the scheduled procedure.
[2023-11-19 07:39] LABS: Glucose - Point of Care 154 mg/dl (70-99)
[2023-11-19 08:46] LABS: ACT-LR - POC 269 Seconds (116-155)
[2023-11-19 09:01] LABS: ACT-LR - POC 332 Seconds (116-155)
[2023-11-19 09:39] LABS: ACT-LR - POC 234 Seconds (116-155)
[2023-11-19 09:47] LABS: Glucose - Point of Care 187 mg/dl (70-99)
[2023-11-19 10:30] LABS: Glucose - Point of Care 201 mg/dl (70-99)
[2023-11-19 10:41] LABS: Hematocrit 41.6 % (39.0-52.0); Hemoglobin 15.1 g/dL (13.0-18.0); Mean Corp Hgb Conc. 36.3 g/dL (33.0-37.0); Mean Corpuscular Volume 82.7 fL (80.0-94.0); Mean Platelet Volume 8.9 fL (7.4-10.4); Platelet Count 215 10^3/uL (130-400); Red Blood Cell Count 5.03 10^6/uL (4.70-6.10); Red Cell Dist. Width 12.4 % (11.5-14.5); White Blood Cell Count 10.9 10^3/uL (4.8-10.8)
[2023-11-19] MEDS: NOVOLOG vial 2 UNITS SC (10:50)
[2023-11-19 10:55] LABS: Blood Urea Nitrogen 27 mg/dl (9-20); Calcium 8.6 mg/dl (8.4-10.2); Carbon Dioxide 18 mmol/L (22-30); Chloride 103 mmol/L (98-107); Estimated Creatinine Clearance 86 ml/min; Glucose 211 mg/dl (70-99); Potassium 4.9 mmol/L (3.5-5.1); Sodium 134 mmol/L (135-145); eGFR > 60.00
--- NOTE | 2023-11-19 11:15 | OR.RPT ---
Operative Report
Operative Report
Date of Operation: 11/19/2023
Pre Op Diagnosis: High-grade stenosis right carotid artery, asymptomatic
Post Op Diagnosis: High-grade stenosis right carotid artery, asymptomatic
Procedure: RIGHT carotid endarterectomy with patch angioplasty using bovine pericardium
Surgeon: Brock Ríos III, MD
Commercial Roofer: Leyla Bagley MD PGY-8
Anesthesia: General
Complications: None
History and Indications for Procedure: 63-year-old male with high-grade stenosis involving the right carotid artery, asymptomatic
Procedure in Detail: Hugh Martinez was correctly identified and placed supine on the operating table. After adequate induction of anesthesia the right neck was positioned, prepped and draped in the usual sterile fashion. Preoperative antibiotics were
administered. A timeout procedure was performed with the nursing and anesthesia staff confirming the patients identity as well as the nature and laterality of the procedure.
The carotid bifurcation was marked with ultrasound at the beginning of the case. The incision was planned accordingly. An incision was made along the anterior border of the right sternocleidomastoid muscle. Electrocautery was used to divide the
subcutaneous tissue and platysma. The carotid sheath was entered with sharp dissection. The internal jugular vein was retracted laterally. The vagus nerve was identified and protected throughout the case. The common carotid artery was identified at
the base of this incision and carefully encircled with a vessel loop. The patient was systemically heparinized. The dissection was continued distally towards the carotid bifurcation. The facial vein was skeletonized, ligated and divided between silk
ties. The proximal external carotid artery was encircled with a vessel loop along with the superior thyroid branch. The distal internal carotid artery was encircled with a vessel loop at a soft spot on the artery beyond the plaque. The hypoglossal
nerve was identified and protected.
The internal vessel loop was secured followed by the common and external. An arteriotomy was made on the distal common carotid artery with an 11-blade. This was extended proximally and distally with [place] scissors. At this point I was alerted that
the patient was having neuromonitoring changes and therefore we proceeded with shunt insertion. The arteriotomy was extended distally through the plaque to an area of normal appearing internal carotid artery. A 10 Trumann shunt was flushed with
heparinized saline. The distal end was carefully inserted to the internal carotid artery. The shunt was allowed to backbleed and then inserted into the common carotid artery. The distal vessel loop was replaced with a small shunt clamp. The
proximal vessel loop was left in place. An endarterectomy was performed with a [place] elevator in the standard fashion. The proximal extent of the plaque was transected with scissors. The distal end of the plaque in the internal carotid artery
feathered nicely with the assistance of an 11 blade. There was a posterior intimal flap that was tacked down carefully with interrupted 7-0 Prolene suture. The plaque extending into the external carotid artery was everted. Once the plaque was
fully removed the endarterectomy plane was irrigated with heparinized saline and any loose fronds of tissue were removed. A pre-cut piece of bovine pericardium was sewn in place using a running 6-0 Prolene suture. Prior to the completion of the
patch the shunt was removed. The common carotid was allowed to forward bleed and the external was allowed to back bleed. The area under the patch was quickly irrigated with heparinized saline to remove any potential thrombus or debris. The
anastomosis was completed.
The external vessel loop was released first, followed by the common and then the internal. There was an excellent pulse in the distal internal carotid artery. An excellent quality Doppler signal in the distal internal carotid artery was also
confirmed. The patch suture line was closely inspected for hemostasis and was achieved. Protamine was administered. Hemostasis was achieved in the wound bed. The wound was irrigated with saline solution.
The wound was then closed in layers. Sterile dressings were applied. The patient awoke from anesthesia with no immediate neuro deficits and was taken to the PACU in stable condition.
Attestation: I was present and responsible for the entire procedure
Signed:
Brock Ríos III, MD
[facility] Surgery
[phone] (ndpz)
--- NOTE | 2023-11-19 11:45 | PTCARENOTE ---
Received patient from PACU via bed. Pt AAOX3. Speech slurred improved slightly with sips of water. Neurovascular checks WNL. Denies numbness or tingling of his R hand. R radial arterial line transduce and calibrate. It correlates to cuff pressure.
O2 96% on 2L NC. Denies SOB/pain. Abdomen soft nontender, obese, round. Unable to void. BS for 776ml. Dr. Camejo and CARLA Smalls notified via TT. Accu check 202. Pt instructed on plan of care, use of call wolf. Hourly neurochecks and expected
time out of bed. Pt verbalizes understanding. Plan of care ongoing.
--- NOTE | 2023-11-19 12:11 | CON.INTV ---
Consultation
Consultation Request
Date/Time Consultation Requested: 11/19/23
Date/Time Consultation Performed: 11/19/23
Performing Provider: Bashir
Reason for Consultation: Vasc Postop
Medical History
-
History of Present Illness:
Patient is a 63-year-old male with previous history of recent CVA presenting for elective vascular intervention. He was recently admitted in July for symptoms of difficult speech, ambulatory dysfunction evaluated by neurology with concern for CVA.
He had a brain CT with no acute intracranial abnormalities but demonstrated old lacunar and occipital lobe infarcts. MRI demonstrated acute to subacute nonhemorrhagic infarct in the brett. Upon further workup he was also found to have right internal
carotid artery stenosis that was recommended to undergo intervention at a later date.
Underwent R CEA 11/19/23 and postoperatively admitted to ICU for further management.
.
Past Medical History
Past Medical History: Other (see list below)
Social History
Tobacco: Non-smoker
Alcohol: None
Drug: None
Family History
Family History: Reviewed & Not Pertinent
Allergies / Home Medications
Allergies
Allergy/AdvReac Type Severity Reaction Status Date / Time
No Known Allergies Allergy Unverified 08/03/23 09:05
Home Medications
�Medication �Instructions �Recorded �Confirmed �Last Taken �Type
hugbjiiwrzpv-vtjrfhtt-rcjhhp 1 tab PO DAILY Supplement 08/03/23 11/19/23 11/16/23 08:00 History
tablet (Multivitamin 50 Plus
tablet)
aspirin 81 mg chewable tablet 81 mg PO DAILY #100 tabs 08/13/23 11/19/23 11/19/23 04:00 Rx
atorvastatin 80 mg tablet 80 mg PO QPM #90 tabs 08/13/23 11/19/23 11/19/23 04:00 Rx
clopidogrel 75 mg tablet 75 mg PO DAILY #90 tabs 08/13/23 11/19/23 11/16/23 07:00 Rx
glipizide 5 mg tablet 5 mg PO BID@0800,1700 #180 tabs 08/13/23 11/05/23 Unknown Rx
lisinopril 10 mg tablet 10 mg PO DAILY #90 tabs 08/13/23 11/19/23 11/19/23 04:00 Rx
metformin 1,000 mg tablet 1,000 mg PO BID@0800,1700 #360 tabs 08/13/23 11/19/23 11/16/23 20:00 Rx
Review of Systems
-
History Source: Patient
All other systems: Negative unless noted
Vitals / Labs / Diagnostic Testing
Vital Signs
Temp Pulse Resp BP Pulse Ox
97.8 F 91 11 138/84 96
11/19/23 11:25 11/19/23 11:30 11/19/23 11:30 11/19/23 11:30 11/19/23 11:30
Lab Data
11/19/23 10:33
11/19/23 10:33
Diagnostic Testing:
Physical Exam
-
HEENT: Normocephalic, Anicteric and Moist Mucous Membranes
Cardiovascular: S1/S2 and Regular Rhythm
Respiratory: Clear and Non-Labored Respirations
GI: Soft, Non Distended and Non Tender
Neurology: Awake, Alert, Oriented and No Motor Deficits
Skin: Warm, Dry and Good Color
General: Comfortable and Other (NAD)
Assessment
-
Patient is a 63-year-old male with previous history of recent CVA presenting for elective vascular intervention. He was recently admitted in July for symptoms of difficult speech, ambulatory dysfunction evaluated by neurology with concern for CVA.
He had a brain CT with no acute intracranial abnormalities but demonstrated old lacunar and occipital lobe infarcts. MRI demonstrated acute to subacute nonhemorrhagic infarct in the brett. Upon further workup he was also found to have right internal
carotid artery stenosis that was recommended to undergo intervention at a later date.
Underwent R CEA 11/19/23 and postoperatively admitted to ICU for further management.
R ICA stenosis s/p R CEA 11/19/23
Recent acute pontine stroke, MRI 07/2023
Mild hyponatremia
Hyperglycemia
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
NIDDM
Hypertension
Chewing tobacco since 1980
Plan
Patient is s/p R CEA by vascular surgery service, POD #0
Continue observation following procedure
Follow neurovascular checks per protocol
ASA, Plavix and statin on board
Follow BP monitoring and parameters as set by primary team
Cardiac history noted--HTN
Resume home meds when able
Monitor on telemetry
Pain control per protocol
RASS goal 0
No prior history of pulmonary disease
CXR reviewed indicating no acute disease
No prior PFTs for review
Encouraged IS
Diet advancement per protocol
Aspiration precautions
GI prophylaxis if indicated for stress ulcer prevention in the critically ill
Creat at baseline, follow UO
Critical I/Os
Void trials
Replete electrolytes as needed
No signs/symptoms suspicious for infectious etiology at this time
Will observe off antibiotics for now
Follow temperatures/CBC
Hb and platelets postoperatively stable
DVT prophylaxis recommended if not contraindicated based on procedural history -- heparin SQ and mechanical SCDs
Encouraged OOB/PT/OT/ambulation once cleared by surgical team
We will follow
Diagnostic Data
Chest X-Ray: 08/11/23- No acute cardiopulmonary process.
CT Scan:
Brain MRI 08/04/23- 1. Acute to subacute nonhemorrhagic infarct in the brett to the left midline measuring 1.2 cm.
2. Multiple chronic infarcts.
3. Chronic senescent changes, as above.
Echo: 08/05/23- Normal LV size and function with no regional wall motion abnormalities. LVEF is 60 to 65% by Chadwick's method of discs. Mild concentric LVH. Stage I diastolic dysfunction suggestive of abnormal relaxation. Normal right ventricular
size and function. No significant valvular disease. No prior study available for comparison.
PFT's:
Reports and relevant images were personally reviewed.
-----
Critical care time 56 mins -- this includes review of history, physical exam, medications, hemodynamic/ventilator parameters, laboratory data, imaging and discussion with house staff, pharmacy, respiratory therapy, medical administrator, and nursing.
[2023-11-19] MEDS: NSS 1000 IV ×2 (12:22→23:00)
[2023-11-19 12:33] LABS: Magnesium 1.5 mg/dl (1.6-2.3)
[2023-11-19 13:01] LABS: Glucose - Point of Care 202 mg/dl (70-99)
[2023-11-19] MEDS: TYLENOL 650 MG PO ×2 (13:27→20:22)
[2023-11-19] MEDS: GLUCOPHAGE 1000 MG PO (17:16)
[2023-11-19] MEDS: LIPITOR 80 MG PO (17:16)
[2023-11-19] MEDS: GLUCOTROL 5 MG PO (17:16)
[2023-11-19 17:21] LABS: Glucose - Point of Care 208 mg/dl (70-99)
--- NOTE | 2023-11-19 20:00 | PTCARENOTE ---
Pt GCS 15, DELAROSA 5/5, incision approximated, ice pack applied as ordered. Tylenol given for comfort. Afebrile. NSR on monitor. BP within parameters without medication. Art line zeroed. Tolerating diet. Voiding in urinal. Will monitor.
[2023-11-19] MEDS: MAGNESIUM SULFATE 100 IV (20:01)
[2023-11-19] MEDS: HEPARIN 5000 UNITS SC (20:02)
[2023-11-20] VITALS (8 sets, daily range): BP systolic 116–159; BP diastolic 64–112
--- NOTE | 2023-11-20 01:00 | PTCARENOTE ---
Pt resting comfortably, no change in assessment. Will monitor closely.
[2023-11-20 05:36] LABS: Hematocrit 39.5 % (39.0-52.0); Hemoglobin 14.3 g/dL (13.0-18.0); Mean Corp Hgb Conc. 36.2 g/dL (33.0-37.0); Mean Corpuscular Hgb 29.9 pg (27.0-31.0); Mean Corpuscular Volume 82.6 fL (80.0-94.0); Mean Platelet Volume 8.7 fL (7.4-10.4); Platelet Count 230 10^3/uL (130-400); Red Blood Cell Count 4.78 10^6/uL (4.70-6.10); Red Cell Dist. Width 12.4 % (11.5-14.5); White Blood Cell Count 12.1 10^3/uL (4.8-10.8)
[2023-11-20 05:43] LABS: INR 1.03; PT 13.3 Sec (11.4-14.6)
[2023-11-20 05:44] LABS: APTT 23.3 Sec (23.4-35.0)
[2023-11-20] MEDS: TYLENOL 650 MG PO (05:52)
[2023-11-20 06:04] LABS: Blood Urea Nitrogen 20 mg/dl (9-20); Calcium 8.9 mg/dl (8.4-10.2); Carbon Dioxide 20 mmol/L (22-30); Chloride 104 mmol/L (98-107); Estimated Creatinine Clearance 86 ml/min; Glucose 120 mg/dl (70-99); Magnesium 1.9 mg/dl (1.6-2.3); Potassium 4.5 mmol/L (3.5-5.1); Sodium 137 mmol/L (135-145); eGFR > 60.00
[2023-11-20 07:22] LABS: Glucose - Point of Care 145 mg/dl (70-99)
--- NOTE | 2023-11-20 07:31 | W.PN.INTV ---
Today's Communication / Plan
Recommendations
Doing well today, stable on RA
OOB to chair, no new complaints
Tolerating PO diet, ambulating
Discharge planning per team
Assessment
-
Patient is a 63-year-old male with previous history of recent CVA presenting for elective vascular intervention. He was recently admitted in July for symptoms of difficult speech, ambulatory dysfunction evaluated by neurology with concern for CVA.
He had a brain CT with no acute intracranial abnormalities but demonstrated old lacunar and occipital lobe infarcts. MRI demonstrated acute to subacute nonhemorrhagic infarct in the brett. Upon further workup he was also found to have right internal
carotid artery stenosis that was recommended to undergo intervention at a later date.
Underwent R CEA 11/19/23 and postoperatively admitted to ICU for further management.
R ICA stenosis s/p R CEA 11/19/23
Recent acute pontine stroke, MRI 07/2023
Mild hyponatremia
Hyperglycemia
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
NIDDM
Hypertension
Chewing tobacco since 1980
Plan
Patient is s/p R CEA by vascular surgery service, POD #1
Continue observation following procedure
Follow neurovascular checks per protocol
ASA, Plavix and statin on board
Follow BP monitoring and parameters as set by primary team
Cardiac history noted--HTN
Resume home meds when able
Monitor on telemetry
Pain control per protocol
RASS goal 0
No prior history of pulmonary disease
CXR reviewed indicating no acute disease
No prior PFTs for review
Encouraged IS
Diet advancement per protocol
Aspiration precautions
GI prophylaxis if indicated for stress ulcer prevention in the critically ill
Creat at baseline, follow UO
Critical I/Os
Void trials
Replete electrolytes as needed
No signs/symptoms suspicious for infectious etiology at this time
Will observe off antibiotics for now
Follow temperatures/CBC
Hb and platelets postoperatively stable
DVT prophylaxis recommended if not contraindicated based on procedural history -- heparin SQ and mechanical SCDs
Encouraged OOB/PT/OT/ambulation once cleared by surgical team
Discharge planning per team
Diagnostic Data
Chest X-Ray: 08/11/23- No acute cardiopulmonary process.
CT Scan:
Brain MRI 08/04/23- 1. Acute to subacute nonhemorrhagic infarct in the brett to the left midline measuring 1.2 cm.
2. Multiple chronic infarcts.
3. Chronic senescent changes, as above.
Echo: 08/05/23- Normal LV size and function with no regional wall motion abnormalities. LVEF is 60 to 65% by Chadwick's method of discs. Mild concentric LVH. Stage I diastolic dysfunction suggestive of abnormal relaxation. Normal right ventricular
size and function. No significant valvular disease. No prior study available for comparison.
PFT's:
Reports and relevant images were personally reviewed.
-----
Critical care time 31 mins -- this includes review of history, physical exam, medications, hemodynamic/ventilator parameters, laboratory data, imaging and discussion with house staff, pharmacy, respiratory therapy, die caster, and nursing.
Subjective Dataa
Subjective Data
Date of Service:
Date of Service: November 20, 2023
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
Subjective:
Doing well, stable on RA
Sitting in chair, no new complaints
Able to void now
Objective Data
Data Reviewed
Vital Signs / I&O / Oxygen:
Vital Signs
Temp Pulse Resp BP Pulse Ox
98.3 F 82 17 132/79 96
11/20/23 04:00 11/20/23 05:45 11/20/23 05:45 11/20/23 04:00 11/20/23 05:45
Intake and Output
11/19/23 11/20/23 11/21/23
06:59 06:59 06:59
Intake Total 2370 / 2370
Output Total 3100 / 3100
Balance -730 / -730
SaO2 96
Nasal Cannula flow liters per 2
minute
Physical Exam
General: Comfortable and Other (NAD)
HEENT: Normocephalic, Anicteric and Moist Mucous Membranes
Cardiovascular: S1-S2 and Regular Rhythm
Respiratory: Clear and Non-Labored Respirations
GI: Soft, Non Distended and Non Tender
Neurology: Awake, Alert, Oriented and No Motor Deficits
Skin: Warm, Dry and Good Color
Labs/Micro/Reports
Lab Data
11/20/23 05:14
11/20/23 05:14
Laboratory Results
11/19/23 11/20/23
11:56 05:14
PT Cancelled 13.3
INR Cancelled 1.03
APTT Cancelled 23.3 L
--- NOTE | 2023-11-20 08:00 | PTCARENOTE ---
Received pt @ change of shift. Pt. AAOx3, garbled/slurred speech @ baseline. Neuro checks completed T0M-mho flow sheet. DELAROSA. SR on monitor. SpO2 97% on 2LNC. +BS, abd soft/round/obese; flatus/no BM post op. Tolerating breakfast. Voiding in
urinal. R neck incision approximated w surgical glue; ice pack applied prn. R rad A-line transduced, calibrated, and monitored; all ports patent and secured. #20 R hand patent w NSS @ 80mL/hr. Call luciano maier in reach.
[2023-11-20] MEDS: ZESTRIL 10 MG PO (08:27)
[2023-11-20] MEDS: GLUCOPHAGE 1000 MG PO (08:27)
[2023-11-20] MEDS: THERAGRAN 1 TABLET PO (08:27)
[2023-11-20] MEDS: GLUCOTROL 5 MG PO (08:27)
[2023-11-20] MEDS: LOW STRENGTH ASPIRIN 81 MG PO (08:27)
[2023-11-20] MEDS: PLAVIX 75 MG PO (08:27)
[2023-11-20] MEDS: HEPARIN 5000 UNITS SC (08:28)
--- NOTE | 2023-11-20 08:28 | W.PN.VS ---
Addendum entered and electronically signed by Neftali Evans MD 11/20/23 09:58:
Seen and examined with RV DETAILER's. Agree with findings as noted below. Patient without complaints. Right neck incision is clean dry and intact. No hematoma. Neurologically no focal deficits. Moves all extremities well, tongue midline. Plan/as
discussed and noted below.
Original Note:
Today's Communication / Plan
-
Patient seen and examined at bedside with Dr. Neftali vEans, below plan reviewed with attending.
Assessment/Plan
-
Assessment: 63-year-old male POD #1 right carotid endarterectomy
Plan:
Discontinue arterial line
Discontinue IV fluids
OOB to chair with progression to ambulation as tolerated
Possible discharge later today pending progression
Subjective Data
-
Date of Service: November 20, 2023
Patient seen and examined at bedside, denies pain and offers no complaints. Denies nausea, vomiting, fever, chills, and headache.
Objective Data
-
Vital Signs
Temp Pulse Resp BP Pulse Ox
98.6 F 82 17 132/79 96
11/20/23 08:08 11/20/23 05:45 11/20/23 05:45 11/20/23 04:00 11/20/23 05:45
Intake and Output
11/19/23 11/20/23 11/21/23
06:59 06:59 06:59
Intake Total 2370 / 2370
Output Total 3100 / 3100
Balance -730 / -730
Intake:
Oral fluids 700 / 700
IV fluids (Total) 1670 / 1670
NSS 150 / 150
Nss 1,000 ml @ 80 mls/hr IV . 1520 / 1520
[id number] RORY Rx#:[id number]
Output:
Urine, Voided 1999 1999
Straight cath output 1100 / 1100
Lab Results
11/20/23 05:14
11/20/23 05:14
Calcium 8.9 mg/dl (8.4-10.2) 11/20/23 05:14
Magnesium 1.9 mg/dl (1.6-2.3) 11/20/23 05:14
Physical Exam
-
No apparent distress, resting in bed comfortably
Face symmetrical, right neck surgical incision CDI, no evidence of hematoma, tongue midline
No tachycardia
No dyspnea
ABD rotund
Bilateral upper extremities and lower extremities with equal strength and movement
[2023-11-20 11:55] LABS: Glucose - Point of Care 85 mg/dl (70-99)
--- NOTE | 2023-11-20 12:37 | PTCARENOTE ---
R rad A-line d/c'd per order; pressure held until bleeding ceased; no hematoma present; clean dressing applied. IVF d/c'd per orders. Stand by assisted pt. OOB to chair @ 0845. Pt. remain in chair @ this time; stand by assisted into BR.
Tolerating meals. Call wolf remains w in reach.
--- NOTE | 2023-11-20 13:06 | PTCARENOTE ---
Pt. ambulated around unit, did not require assist. VSS. Stand by assisted back into chair. Call luciano maier in reach.
--- NOTE | 2023-11-20 13:58 | W.DS.TRANS ---
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
-
Discharge Instructions:
Discharge Diagnosis/Procedures RIGHT carotid endarterectomy with patch
angioplasty using bovine pericardium
Diet As tolerated
Activity No strenuous activity
Driving Restrictions Not until seen by your Dr
Bathing Restrictions OK to Shower
Instructions:
Stand-Alone Forms: DC Instr - Vascular OR
Changes to Home Medications: No
Discharge Medications:
DC Medications w/original date entered in [facility]
hxstegttrwbz-gwoxiofy-mpaacg tablet (Multivitamin 50 Plus tablet) 1 tab PO DAILY Supplement 08/03/23
aspirin 81 mg chewable tablet 81 mg PO DAILY #100 tabs 08/13/23
atorvastatin 80 mg tablet 80 mg PO QPM #90 tabs 08/13/23
clopidogrel 75 mg tablet 75 mg PO DAILY #90 tabs 08/13/23
glipizide 5 mg tablet 5 mg PO BID@0800,1700 #180 tabs 08/13/23
lisinopril 10 mg tablet 10 mg PO DAILY #90 tabs 08/13/23
metformin 1,000 mg tablet 1,000 mg PO BID@0800,1700 #360 tabs 08/13/23
Home Medication Changes
Pending Results: No
[2023-11-20] MEDS: AFLURIA (36 mos+) 2024-2025 FORMULA 0.5 ML IM (14:13)
--- NOTE | 2023-11-20 14:35 | PTCARENOTE ---
Discharge instructions completed w patient. front desk monitor and PIVs removed. Pt. d/c'd to home w friend via wheelchair. No further needs from this RN.
--- NOTE | 2023-11-21 16:38 | W.DCSUMMARY ---
Discharge Summary
Discharge Data
Date of Admission: 11/19/23
Date of Discharge: 11/20/23
-
Pending Results: No
Hospital Course
Attending: [place]
Consultants: Pulmonary medicine
Allergies: NKDA
Procedure with date: 11/19/23: RIGHT carotid endarterectomy with patch angioplasty using bovine pericardium
History of present illness: The patient is an 63 -year-old male with multiple medical conditions including: carotid stenosis, Recent acute pontine stroke, Old Lacunar/occipital CVA, NIDDM, Hypertension, Chewing tobacco since 1980. Patient presented
on 11/19/23 for scheduled procedure with Dr. Ríos. Patient presented at baseline health with no reports of recent illness or trauma.
Hospital Course: Briefly, the patient underwent scheduled CEA without complications, and recovered in PACU. Following recovery phase one and two patient was transferred to intensive care unit per protocol for continued hemodynamic monitoring.
Construction Code Administrator consulted to aid in medical management from a critical care perspective. POD #1 (11/20/23) Patient neurologically intact, face symmetrical, and tolerating PO diet. Surgical neck site clean, dry, and intact with suture line well
approximated and soft. No evidence of hematoma. Arterial line and IV fluids discontinued. Patient able to ambulate without difficulty or incident. Patient stable for discharge to home.
Prescriptions and follow up appointment are included in the DC summary manager of employee relations note. All instructions were given to the patient in both written and verbal form and the patient expressed understanding.
Discharge Plan
-
Patient Disposition: Home (Routine Discharge)
Discharge Diagnosis/Procedures: RIGHT carotid endarterectomy with patch angioplasty using bovine pericardium
Condition: Good
Diet: As tolerated
Activity: No strenuous activity
Driving Restrictions: Not until seen by your Dr
Bathing Restrictions: OK to Shower
Activity Restrictions/Additional Instructions:
If you experience severe constant headache, weakness to an arm or leg, change in vision, trouble speaking or any stroke-like symptom, call 911 immediately
If you experience swelling, increased bruising, drainage from neck site, or fever, please call the office
Stand Alone Forms: DC Instr - Vascular OR
Referrals:
UNKNOWN - PT DOES,NOT KNOW [Family Provider] -
Marium Tavarez CRNP [Specified Professional Personl] - 12/03/23 10:45 am
Prescriptions:
Continued
Multivitamin 50 Plus Tablet
1 tab PO DAILY
atorvastatin 80 mg Tablet
80 mg PO QPM Qty: 90 0RF
clopidogrel 75 mg Tablet
75 mg PO DAILY Qty: 90 0RF
metformin 1,000 mg Tablet
1,000 mg PO BID@0800,1700 Qty: 360 0RF
lisinopril 10 mg Tablet
10 mg PO DAILY Qty: 90 0RF
aspirin 81 mg Tablet,Chewable
81 mg PO DAILY Qty: 100 0RF
glipizide 5 mg Tablet
5 mg PO BID@0800,1700 Qty: 180 0RF
Discharge Orders:
Discharge Patient (As Directed); Ordered 11/20/23
Ordered By: Claire Patterson
Discharge Date and Time
Discharge Date/Time: 11/20/23 14:38
Print Language: MOSOT[place]
[2023-11-21 21:08] LABS: Hepatitis C Antibody Negative (Negative)
== END 2023-11-20 14:38 | disposition home or self-care (01) | DRG 38 ==
LOC: ICU 06:26
PROVIDERS: Nurse Practitioner; ADMITTING PHYSICIAN Surgery Vascular Surgery; CONSULT PHYSICIAN Internal Medicine
PROC: 03CK0ZZ Extirpation of Matter from Right Internal Carotid Artery, Open Approach (ICD-10-PCS; 2023-11-19)
PROC: 03UK0KZ Supplement Right Internal Carotid Artery with Nonautologous Tissue Substitute, Open Approach (ICD-10-PCS; 2023-11-19)
DX: I65.23 Occlusion and stenosis of bilateral carotid arteries (principal); E87.1 Hypo-osmolality and hyponatremia; I10 Essential (primary) hypertension; E11.65 Type 2 diabetes mellitus with hyperglycemia; F17.220 Nicotine dependence, chewing tobacco, uncomplicated; Z79.82 Long term (current) use of aspirin; Z79.84 Long term (current) use of oral hypoglycemic drugs; Z79.899 Other long term (current) drug therapy; Z86.73 Personal history of transient ischemic attack (TIA), and cerebral infarction without residual deficits
CPT/HCPCS: 35301; 36415; 71045; 80048; 82962; 83735; 85025; 85027; 85610; 85730; 86803; 90686; 93005; G0008

== ENCOUNTER → 2023-12-24 10:23 | Outpatient (REF) | payer OTHER, SELFPAY | LOC: RAD 10:23 | PROVIDERS: ATTENDING PHYSICIAN Registered Nurse | DX: I65.23 Occlusion and stenosis of bilateral carotid arteries (principal) | CPT/HCPCS: 93880 ==

== ENCOUNTER → 2024-07-10 08:23 | Outpatient (REF) | payer MEDICAID, SELFPAY | LOC: RAD 08:23 | PROVIDERS: ATTENDING PHYSICIAN Surgery Vascular Surgery | DX: I65.23 Occlusion and stenosis of bilateral carotid arteries (principal) | CPT/HCPCS: 93880 ==

== ENCOUNTER → 2024-09-25 09:02 | Outpatient (REF) | payer OTHER, SELFPAY | LOC: HWRCS 09:02 | PROVIDERS: ATTENDING PHYSICIAN Internal Medicine Interventional Cardiology; FAMILY PHYSICIAN Anesthesiology Pain Medicine | DX: I10 Essential (primary) hypertension (principal); E78.2 Mixed hyperlipidemia; E11.9 Type 2 diabetes mellitus without complications; I65.21 Occlusion and stenosis of right carotid artery; Z86.73 Personal history of transient ischemic attack (TIA), and cerebral infarction without residual deficits | CPT/HCPCS: 93306 ==

== ENCOUNTER → 2024-12-25 08:57 | Outpatient (REF) | payer OTHER, SELFPAY | LOC: RAD 08:57 | PROVIDERS: ATTENDING PHYSICIAN Registered Nurse; REFERRING PHYSICIAN Internal Medicine Interventional Cardiology | DX: I65.23 Occlusion and stenosis of bilateral carotid arteries (principal) | CPT/HCPCS: 93880 ==